=== PATIENT | female | born 1950 | race Caucasian/White ===

== ENCOUNTER 2017-04-07 20:03 | Emergency (ER) | payer BC ==
[~2017-04-07] VITALS: Ht 154.9 cm; Wt 69.0 kg
[~2017-04-07 20:03] MED LIST: CLIN150 PO; DOXY100T PO; HYDR-3533 PO; LEVO50TA4 PO; METHTAB PO
[2017-04-07 20:21] VITALS: BP 199/102; PULSE 102; RESP 18; TEMP 98.3; O2SAT 96
[2017-04-07] MEDS ORDERED: ESTE1TAB5 PO (20:37)
[2017-04-07] MEDS ORDERED: LEVO50TA4 PO (20:37)
[2017-04-07 20:42] VITALS: BP 186/110; PULSE 100; RESP 18; TEMP 98.1; O2SAT 97
[2017-04-07] MEDS ORDERED: HYDROmorphone HCL PF 1 MG/ML VIAL IV PUSH ONE (20:45)
--- NOTE | 2017-04-07 21:19 | RADRPT ---
EXAM DATE/TIME: 04/07/2017 21:05 [facility] COMPARISON: No previous studies available for comparison. INDICATIONS : Right shoulder pain after falling tonight. MEDICAL HISTORY : None. SURGICAL HISTORY : None. ENCOUNTER: Initial ACUITY: 1 day PAIN SCORE: 10/10 LOCATION: Right shoulder. FINDINGS: There is anterior-inferior dislocation of the humerus with respect to the glenoid. There is a probabl e Hill-Sachs to be a humeral head and it is difficult to exclude a fracture of the inferior glenoid r im. CONCLUSION: Shoulder dislocation with possible fracture deformities. Post reduction films are recommended. Benito Chaudhari MD on April 07, 2017 at 21:17 Board Certified Radiologist. This report was verified electronically.
--- NOTE | 2017-04-07 21:27 | PD ---
HPI Chief Complaint: Fall Time Seen by Provider: 20:41 Travel History International Travel<30 days: No Contact w/Intl Traveler<30days: No Traveled to known affect area: No History of Present Illness HPI This 66 year-old woman presents emergent breath or slip and fall. States she landed directly on her left shoulder. She has left shoulder pain and tenderness. She cannot move the left shoulder. She has no head pain or neck pain. Is a little bit of pain in the left paraspinous muscles near the shoulder. She also scraped her left foot. She otherwise is well and healthy. She is not on any blood thinners. No other complaints. History Past Medical History Narrative Medical Hypothyroidism Tetanus Vaccination: < 5 Years Influenza Vaccination: No Social History Alcohol Use: No Tobacco Use: No Allergies-Medications (Allergen,Severity, Reaction): Coded Allergies: Penicillin (Verified Allergy, Mild, RASH, 04/07/17) Macrodantin (Verified Allergy, Unknown, RASH, 04/07/17) Reported Meds & Prescriptions Reported Meds & Active Scripts Active Reported Levothyroxine (Levothyroxine Sodium) 50 Mcg Tab 50 Mcg PO DAILY Esterified Estrogens-Methyltestosterone 1.25-2.5 Mg Tab 2.5 Mg PO DAILY Review of Systems Except as stated in HPI: all other systems reviewed are Neg Physical Exam Narrative GENERAL: Well-appearing 66 year-old woman, uncomfortable but nontoxic. SKIN: Focused skin assessment warm/dry. HEAD: Atraumatic. Normocephalic. NECK: Trachea midline. No JVD. CARDIOVASCULAR: Regular rate and rhythm. No murmur appreciated. RESPIRATORY: No accessory muscle use. Clear to auscultation. Breath sounds equal bilaterally. GASTROINTESTINAL: Abdomen soft, non-tender, nondistended. Hepatic and splenic margins not palpable. MUSCULOSKELETAL: There is deformity to the left shoulder with squaring off at the shoulder, she guards the shoulder slightly abducted and slightly flexed. Radial/ulnar/median nerve function is intact. NEUROLOGICAL: Awake and alert. No obvious cranial nerve deficits. Motor grossly within normal limits. Normal speech. Data Data Last Documented VS Vital Signs Date Time Temp Pulse Resp B/P Pulse Ox O2 Delivery O2 Flow Rate FiO2 04/07/17 20:42 100 18 97 Room Air 04/07/17 20:42 98.1 186/110 Orders Iv Access Insert/Monitor (04/07/17 20:45) Shoulder, Limited(2vws) (04/07/17 ) Hydromorphone Pf Inj (Dilaudid Pf Inj) (04/07/17 20:45) Propofol 200 Mg/20 Ml Inj (Diprivan 200 (04/07/17 21:30) Shoulder, Limited(2vws) (04/07/17 ) [facility] Medical Decision Making Medical Screen Exam Complete: Yes Emergency Medical Condition: Yes Interpretation(s) Left shoulder x-ray: Shoulder dislocation with possible fracture deformities. Postreduction films are recommended. Repeat shoulder x-ray: Successful reduction. Likely Bankart and Hill-Sachs lesions. Differential Diagnosis Shoulder dislocation, fracture, other Narrative Course Medical decision-making 58-year-old woman presents emergent department left shoulder injury. Appears dislocated. Mechanism suspicious for fracture as well. X-ray confirms dislocation with possible fractures. We'll reduce the shoulder, repeat films, or throat follow-up. Procedures Procedure Narrative After the risks and benefits were discussed the following procedure was performed: MODERATE SEDATION: The patient was placed on a registered nurse cardiac telemetry and pulse oximetry. An ambu bag and suction was immediately available at bedside. The patient was monitored by the nurse. Oxygen saturation, heart rate and blood pressure were monitored. Procedural sedation was acheived using 70 mg of propofol.. The patient was observed until awake and alert. Procedural Sedation time in attendance was 15 minutes. Joint reduction: Following informed consent and procedural sedation, simple axial traction and abduction was utilized to reduce the left shoulder. Patient tolerated well. X- ray pending. Diagnosis Primary Impression: Dislocation of left shoulder joint Additional Instructions: Take thousand milligrams of acetaminophen up to 3 times daily as needed for pain. Follow-up with your primary doctor in the next one to 2 days for repeat evaluation. Follow-up with Dr. Diehl in the next one to 2 weeks. Wear sling for one week. Do pendulum shoulder range of motion exercises as discussed several times daily. Return to the emergency department for any new or worsening symptoms. Med/Other Pt SpecificInfo: No Change to Meds Disposition: 01 DISCHARGE HOME Condition: Stable Bernardino Del Real MD Apr 07, 2017 21:27
[2017-04-07] MEDS ORDERED: PROPOFOL 200 MG/20 ML AMP IV ONE (21:30)
[2017-04-07 21:40] VITALS: O2SAT 96
--- NOTE | 2017-04-07 22:03 | RADRPT ---
EXAM DATE/TIME: 04/07/2017 21:56 [facility] COMPARISON: SHOULDER LEFT LTD (2VWS), April 07, 2017, 21:05. INDICATIONS : Post reduction of the left shoulder. MEDICAL HISTORY : None. SURGICAL HISTORY : None. ENCOUNTER: Subsequent ACUITY: 1 day PAIN SCORE: Non-responsive. LOCATION: Left shoulder. FINDINGS: Post reduction films demonstrate normal alignment of the glenohumeral joint. A Hill-Sachs deformity i s suspected the humeral head as well as terior glenoid rim minimally displaced fracture. CONCLUSION: Interval reduction of the shoulder dislocation as above with Hill-Sachs deformity and Bankart deformi ty present. Benito Chaudhari MD on April 07, 2017 at 22:01 Board Certified Radiologist. This report was verified electronically.
[2017-04-07] MEDS ORDERED: HYDR-3533 PO (22:17)
[2017-04-07 22:44] VITALS: BP 172/94; PULSE 84; RESP 18; O2SAT 98
== END 2017-04-07 22:51 | disposition home or self-care (01) ==
LOC: PHED 20:03
DX: S43.005A Unspecified dislocation of left shoulder joint, initial encounter (principal); E03.9 Hypothyroidism, unspecified; W01.0XXA Fall on same level from slipping, tripping and stumbling without subsequent striking against object, initial encounter
CPT/HCPCS: 23650; 73030; 96374; 99285; J1170

== ENCOUNTER 2017-08-22 17:24 | Inpatient (IN) | payer BC ==
[~2017-08-22] VITALS: Ht 154.9 cm; Wt 75.8 kg
[2017-08-22] VITALS (8 sets, daily range): BP systolic 141–210; BP diastolic 83–120; PULSE 69–97; RESP 16–20; TEMP 97.5–98.9; O2SAT 95–98
[~2017-08-22 17:24] MED LIST changes: -CLIN150 PO; -DOXY100T PO; +ESTE1TAB5 PO; -METHTAB PO
[2017-08-22] MEDS ORDERED: LAMO25TA PO (17:53)
[2017-08-22] MEDS ORDERED: SERO50TA PO (17:53)
--- NOTE | 2017-08-22 18:06 | PD ---
HPI Chief Complaint: Chest Pain Time Seen by Provider: 17:44 Travel History International Travel<30 days: No Contact w/Intl Traveler<30days: No Traveled to known affect area: No History of Present Illness HPI 67-year-old female complains of coughing congestion and shortness of breath and chest pain. Patient states that the symptoms started about 2 weeks ago. Patient states that the cough is mild intermittent dry cough. Patient denies any fever chills. Patient states that the chest pain is substernal pressure with radiation to the jaw. Patient states that the chest pain is not associated with exertion. Patient denies any history of CAD. Patient has history hypertension was on medication before but not now. Patient has history hyperlipidemia and not on medication either. Patient states that she quit smoking 15 years ago. Patient has family history of heart disease. Patient states that she took some Zantac [id number] without much relief of the symptoms. On a scale of 1-10 the pain is a 7. PFSH Past Medical History Autoimmune Disease: No Blood Disorders: No Anxiety: Yes Depression: Yes Cancer: No Cardiovascular Problems: No Chemotherapy: No Diabetes: No Diminished Hearing: No Endocrine: No Gastrointestinal Disorders: No GERD: Yes Glaucoma: No Genitourinary: No Hepatitis: No Hiatal Hernia: No Heparin Induced Thrombocytopen: No Hypertension: Yes Immune Disorder: No Implanted Vascular Access Dvce: No Kidney Stones: No Medical other: Yes (HX GERD) Musculoskeletal: No Neurologic: No Psychiatric: Yes Reproductive: No Respiratory: No Immunizations Current: Yes Radiation Therapy: No Renal Failure: No Sickle Cell Disease: No Thyroid Disease: Yes Ulcer: No ?: Not Past Surgical History Abdominal Surgery: Yes (APPY) AICD: No Appendectomy: Yes Arteriovenous Shunt: No Cardiac Surgery: No Cholecystectomy: No Ear Surgery: No Endocrine Surgery: No Eye Surgery: No Genitourinary Surgery: No Gynecologic Surgery: Yes (HYSTERECTOMY, RIGHT OOPHORECTOMY) Hysterectomy: Yes (WITH OOPHERECTOMY) Insulin Pump: No Joint Replacement: No Neurologic Surgery: No Oral Surgery: Yes (T & A) Pacemaker: No Thoracic Surgery: No Tonsillectomy: Yes Other Surgery: No Social History Alcohol Use: No Tobacco Use: No Substance Use: No Allergies-Medications (Allergen,Severity, Reaction): Coded Allergies: penicillin G (Unverified Allergy, Mild, RASH, 08/22/17) nitrofurantoin (Unverified Allergy, Unknown, RASH, 08/22/17) Reported Meds & Prescriptions Reported Meds & Active Scripts Active Reported Lamotrigine 25 Mg Tab Unknown Dose PO BID Seroquel (Quetiapine Fumarate) 50 Mg Tab Unknown Dose PO HS Levothyroxine (Levothyroxine Sodium) 50 Mcg Tab 50 Mcg PO DAILY Esterified Estrogens-Methyltestosterone 1.25-2.5 Mg Tab 2.5 Mg PO DAILY Review of Systems General / Constitutional: No: Fever Eyes: No: Visual changes HENT: No: Headaches Cardiovascular: Positive: Chest Pain or Discomfort Respiratory: No: Shortness of Breath Gastrointestinal: No: Abdominal Pain Genitourinary: No: Dysuria Musculoskeletal: No: Pain Skin: No Rash Neurologic: No: Weakness Psychiatric: No: Depression Endocrine: No: Polydipsia Hematologic/Lymphatic: No: Easy Bruising Physical Exam Narrative GENERAL: Well-nourished, well-developed patient. SKIN: Focused skin assessment warm/dry. HEAD: Normocephalic. EYES: No scleral icterus. No injection or drainage. NECK: Supple, trachea midline. No JVD or lymphadenopathy. CARDIOVASCULAR: Regular rate and rhythm without murmurs, gallops, or rubs. RESPIRATORY: Breath sounds equal bilaterally. No accessory muscle use. GASTROINTESTINAL: Abdomen soft, non-tender, nondistended. MUSCULOSKELETAL: No cyanosis, or edema. BACK: Nontender without obvious deformity. No CVA tenderness. Neurologic exam normal. Data Data Last Documented VS Vital Signs Date Time Temp Pulse Resp B/P (MAP) Pulse Ox O2 Delivery O2 Flow Rate FiO2 08/22/17 18:37 18 97 Room Air 08/22/17 18:36 75 08/22/17 17:30 98.9 Orders Orders Electrocardiogram (08/22/17 17:52) Complete Blood Count With Diff (08/22/17 17:52) Comprehensive Metabolic Panel (08/22/17 17:52) Creatine Kinase (Cpk) (08/22/17 17:52) Troponin I (08/22/17 17:52) Prothrombin Time / Inr (Pt) (08/22/17 17:52) Act Partial Throm Time (Ptt) (08/22/17 17:52) Lipase (08/22/17 17:52) Thyroid Stimulating Hormone (08/22/17 17:52) Chest, Single Ap (08/22/17 17:52) Iv Access Insert/Monitor (08/22/17 17:52) Ecg Monitoring (08/22/17 17:52) Oximetry (08/22/17 17:52) Labetalol Inj (Trandate Inj) (08/22/17 18:15) Pantoprazole (Protonix) (08/22/17 18:15) Al-Mag Hy-Si 40-40-4 Mg/Ml Liq (Mag-Al P (08/22/17 18:15) Aspirin (Aspirin) (08/22/17 18:15) Labs Laboratory Tests Test 08/22/17 18:00 White Blood Count 10.4 TH/MM3 Red Blood Count 5.20 MIL/MM3 Hemoglobin 14.6 GM/DL Hematocrit 44.8 % Mean Corpuscular Volume 86.2 FL Mean Corpuscular Hemoglobin 28.2 PG Mean Corpuscular Hemoglobin Concent 32.7 % Red Cell Distribution Width 12.8 % Platelet Count 403 TH/MM3 Mean Platelet Volume 8.5 FL Neutrophils (%) (Auto) 67.6 % Lymphocytes (%) (Auto) 23.4 % Monocytes (%) (Auto) 6.0 % Eosinophils (%) (Auto) 2.0 % Basophils (%) (Auto) 1.0 % Neutrophils # (Auto) 7.1 TH/MM3 Lymphocytes # (Auto) 2.4 TH/MM3 Monocytes # (Auto) 0.6 TH/MM3 Eosinophils # (Auto) 0.2 TH/MM3 Basophils # (Auto) 0.1 TH/MM3 CBC Comment DIFF FINAL Differential Comment Prothrombin Time 10.3 SEC Prothromb Time International Ratio 0.9 RATIO Activated Partial Thromboplast Time 27.8 SEC Blood Urea Nitrogen 18 MG/DL Creatinine 1.00 MG/DL Random Glucose 92 MG/DL Total Protein 7.8 GM/DL Albumin 3.8 GM/DL Calcium Level 8.7 MG/DL Alkaline Phosphatase 84 U/L Aspartate Amino Transf (AST/SGOT) 19 U/L Alanine Aminotransferase (ALT/SGPT) 27 U/L Total Bilirubin 0.4 MG/DL Sodium Level 138 MEQ/L Potassium Level 4.0 MEQ/L Chloride Level 105 MEQ/L Carbon Dioxide Level 24.1 MEQ/L Anion Gap 9 MEQ/L Estimat Glomerular Filtration Rate 55 ML/MIN Total Creatine Kinase 90 U/L Troponin I 0.19 NG/ML Lipase 55 U/L Thyroid Stimulating Hormone 3rd Gen 2.170 uIU/ML MDM Medical Decision Making Medical Screen Exam Complete: Yes Emergency Medical Condition: Yes Interpretation(s) 1806 p.m. EKG shows sinus rhythm nonspecific ST-T wave change. 1822 PM. Chest x-ray shows no acute process. CBC within normal limit. 1857 PM. Troponin 0.19. Differential Diagnosis Differential diagnosis including URI, bronchitis, pneumonia, angina, ND, PE, pneumothorax, GERD. Narrative Course 67-year-old female with coughing congestion and chest pain and shortness of breath. Patient's blood pressures elevated also. Aspirin 325 mg by mouth given. Labetalol 10 mg IV given. Maalox 30 cc by mouth. Protonix 40 mg by mouth. Nitroglycerin drip started. Heparin bolus and drip started. Patient will be admitted [facility] with cardiology consultation. Diagnosis Primary Impression: NSTEMI (non-ST elevated myocardial infarction) Additional Impression: Uncontrolled hypertension Admitting Information Admitting Physician Requests: Admit Toon Iyer MD Aug 22, 2017 18:06
[2017-08-22 18:08] LABS: AUTOMATED NEUTROPHIL # 7.1 TH/MM3 (1.8-7.7); BASOPHIL # 0.1 TH/MM3 (0-0.2); EOSINOPHIL # 0.2 TH/MM3 (0-0.4); HEMATOCRIT 44.8 % (35.0-46.0); HEMO FLAGS DIFF FINAL; LYMPH % 23.4 % (9.0-44.0); LYMPHOCYTE # 2.4 TH/MM3 (1.0-4.8); MEAN CELL VOLUME 86.2 FL (80.0-100.0); MEAN CORPUSCULAR HEMOGLOBIN 28.2 PG (27.0-34.0); MEAN CORPUSCULAR HGB CONC 32.7 % (32.0-36.0); NEUT % 67.6 % (16.0-70.0); PLATELET COUNT 403 TH/MM3 (150-450); RED CELL DISTRIBUTION WIDTH 12.8 % (11.6-17.2); WHITE BLOOD COUNT 10.4 TH/MM3 (4.0-11.0)
[2017-08-22] MEDS ORDERED: LABETALOL HCL 100 MG/20 ML VIAL IV PUSH ONE (18:15)
[2017-08-22] MEDS ORDERED: ALUMINUM/MAGNESIUM/SIMETH 30 ML CUP PO ONE ×2 (18:15→23:00)
[2017-08-22] MEDS ORDERED: ASPIRIN 325 MG TAB PO ONE (18:15)
[2017-08-22] MEDS ORDERED: PANTOPRAZOLE SOD 40 MG DELAYED RELEASE TAB PO ONE (18:15)
--- NOTE | 2017-08-22 18:18 | RADRPT ---
EXAM DATE/TIME: 08/22/2017 18:09 [facility] COMPARISON: No previous studies available for comparison. INDICATIONS : Chest pain, short of breath MEDICAL HISTORY : None. SURGICAL HISTORY : None. ENCOUNTER: Initial ACUITY: 2 weeks PAIN SCORE: 7/10 LOCATION: Bilateral chest FINDINGS: A single view of the chest demonstrates the lungs to be symmetrically aerated without evidence of mas s, infiltrate or effusion. The cardiomediastinal contours are unremarkable. Osseous structures are intact. CONCLUSION: 1. No acute cardiopulmonary disease. Jed Dolan MD on August 22, 2017 at 18:15 Board Certified Radiologist. This report was verified electronically.
[2017-08-22 18:21] LABS: CHLORIDE 105 MEQ/L (98-107); SODIUM (NA) 138 MEQ/L (136-145)
[2017-08-22 18:25] LABS: ANION GAP 9 MEQ/L (5-15); BICARBONATE 24.1 MEQ/L (21.0-32.0); BLOOD UREA NITROGEN 18 MG/DL (7-18)
[2017-08-22 18:27] LABS: APTT (PATIENT) 27.8 SEC (24.3-30.1); INTERNATIONAL NORMALIZED RATIO 0.9 RATIO; PROTHROMBIN TIME - PATIENT 10.3 SEC (9.8-11.6)
[2017-08-22 18:28] LABS: ALT (GPT) 27 U/L (10-53); AST (GOT) 19 U/L (15-37); GLOMERULAR FILTRATION RATE 55 ML/MIN (>89)
[2017-08-22 18:30] LABS: TOTAL BILIRUBIN ADULT 0.4 MG/DL (0.2-1.0)
[2017-08-22 18:31] LABS: ALKALINE PHOSPHATASE 84 U/L (45-117)
[2017-08-22 18:46] LABS: CREATINE KINASE 90 U/L (26-192)
[2017-08-22] MEDS: SODIUM CHLOR 0.9% 1000 ML INJ 1,000 ML IV SCH (19:08)
[2017-08-22] MEDS ORDERED: MAGNESIUM HYDROXIDE SUSP 30 ML CUP PO PRN (19:15)
[2017-08-22] MEDS ORDERED: ONDANSETRON HCL 4 MG/2 ML VIAL IVP PRN (19:15)
[2017-08-22] MEDS ORDERED: HEPARIN SODIUM - IV 10,000 UNITS/10 ML VIAL IV ONE (19:15)
[2017-08-22] MEDS ORDERED: SENNOSIDES 8.6 MG TAB PO PRN (19:15)
[2017-08-22] MEDS ORDERED: NITROGLYCERIN-D5W 50 MG/250 ML 250 ML IV PRN (19:15)
[2017-08-22] MEDS ORDERED: ACETAMINOPHEN 325 MG TAB PO PRN (19:15)
[2017-08-22] MEDS ORDERED: BISACODYL 10 MG SUPP RECTAL PRN (19:15)
[2017-08-22] MEDS ORDERED: LACTULOSE SYRUP 20 GM/30 ML CUP PO PRN (19:15)
[2017-08-22] MEDS: HEPARIN-D5W 25,000 U/250 ML 250 ML IV PRN (19:45)
[2017-08-22] MEDS: SODIUM CHLORIDE 0.9% FLUSH 10 ML FLUSH IV FLUSH SCH (21:00)
[2017-08-22] MEDS: DOCUSATE SODIUM 50 MG/SENNA 8.6 MG TAB PO SCH (21:00)
[2017-08-22] MEDS: METOPROLOL TARTRATE 25 MG TAB PO SCH (21:29)
[2017-08-22] MEDS: PRAVASTATIN SOD 40 MG TAB PO SCH (21:29)
[2017-08-22] MEDS: MORPHINE SULFATE 4 MG/ML INJ IV PUSH PRN (21:29)
[2017-08-22] MEDS: FLUTICASONE PROPIONATE 50 MCG/ACT 16 GM NASAL SPRAY NASAL SCH (22:39)
--- NOTE | 2017-08-22 22:52 | HHI.HP ---
[facility] Nat Mckay M.D. Admission Diagnosis NSTEMI Diagnoses: (1) Hypertensive urgency (2) NSTEMI (non-ST elevated myocardial infarction) Chief Complaint: cough, congestion, shortness of breath, and chest pain Travel History International Travel<30 Days: No Contact w/Intl Traveler <30 Da: No Traveled to Known Affected Are: No History of Present Illness Ms. Freitas is a very anxious 67 year-old female with a history of bipolar disorder, GERD, hypertension, hyperlipidemia, and hypothyroidism who presented to the emergency department on 08/22/2017 in [place] for evaluation of congestion, cough, shortness of breath, and chest pain. Evaluation showed elevated troponin I of 0.19. The patient is seen in her room and the [facility]. She is manic in her behavior. She speaks very rapidly and it is difficult to keep her on subject. She reports that her symptoms began about 2 weeks ago with a mild cough. Accompanying the cough has been some shortness of breath that is worse with exertion and substernal chest pain that she associates with gastroesophageal reflux disease. She reports that it's worse when she bends forward and is accompanied by gastric contents refluxing into her esophagus quite painfully. However, she has also had nausea with these symptoms and right neck and shoulder pain. Her symptoms are worsened with eating. Her symptoms became exacerbated again during my visit and, according to her, this was because she had just finished dinner and felt like indigestion - heparin and nitroglycerin drips were infusing at the time. Her symptoms are accompanied by palpitations, shortness of breath but not associated with diaphoresis. She reports recent tactile fever and chills, shortness of breath, wheezing, chest pressure, neck and shoulder pain, heartburn , indigestion, weight gain of 20 pounds in the past year which she attributes to Seroquel started by her psychiatrist, Dr. Miguel Angel Ortiz. Her CBC is normal and her chest x-ray showed no acute disease. The only lab result that was significantly abnormal was the troponin one elevation of 0.19. She is clearly anxious and suffering from anxiety in her daily life. She has significant psychiatric impairment and her Lamictal dose was increased two weeks ago. Review of Systems Except as stated in HPI: all other systems reviewed are Neg Past Family Social History Past Medical History Bipolar disorder Questionable history of scleroderma GERD Hypertension Hyperlipidemia Hypothyroidism Left shoulder dislocation following fall at home 04/07/2017 . Past Surgical History Hysterectomy Right nephrectomy and appendectomy at the age of 13 Tonsillectomy and adenoidectomy 3 back surgeries, lower back Left breast lumpectomy in the 90s was benign Left distal radius fracture with repair by Dr. Dong 11/11/12 . Reported Medications Reported Meds & Active Scripts Active Reported Lamotrigine 100 Mg Tab 50 Mg PO BID Quetiapine (Quetiapine Fumarate) 50 Mg Tab 50 Mg PO HS Levothyroxine (Levothyroxine Sodium) 50 Mcg Tab 50 Mcg PO DAILY Esterified Estrogens-Methyltestosterone 1.25-2.5 Mg Tab 2.5 Mg PO DAILY . Allergies: Coded Allergies: penicillin G (Unverified Allergy, Mild, RASH, 08/22/17) nitrofurantoin (Unverified Allergy, Unknown, RASH, 08/22/17) Active Ordered Medications Current Medications Labetalol HCl (Trandate Inj) 10 mg ONCE ONCE IV PUSH Last administered on 08/22 18:15; Start 08/22/17 at 18:15; Stop 08/22/17 at 18:16; Status DC Aspirin (Aspirin) 325 mg ONCE ONCE PO Last administered on 08/22/17 18:15; Start 08/22/17 at 18:15; Stop 08/22/17 at 18:16; Status DC Pantoprazole Sodium (Protonix) 40 mg ONCE ONCE PO Last administered on 18:15; Start 08/22/17 at 18:15; Stop 08/22/17 at 18:16; Status DC Al Hydrox/Mg Hydrox/Simethicone (Mag-Al Plus Susp Liq) 30 ml ONCE ONCE PO Last administered on 08/22/17 18:15; Start 08/22/17 at 18:15; Stop 08/22/17 at 18:16; Status DC Nitroglycerin/ Dextrose 250 ml @ 1.5 mls/hr TITRATE PRN IV Chest pain relief Last administered on 08/22/17 19:42; Start 08/22/17 at 19:15 Heparin Sodium (Porcine) (Heparin Inj) 4,000 units ONCE ONCE IV Last administered on 08/22/17 19:45; Start 08/22/17 at 19:15; Stop 08/22/17 at 19:16 ; Status DC Heparin Sodium/ Dextrose 250 ml @ 9.012 mls/ hr TITRATE PRN IV Coagulation Management Last administered on 08/22/17 19:45; Start 08/22/17 at 19:15 Metoprolol Tartrate (Lopressor) 25 mg Q12HR PO Last administered on 08/22/17 21:29; Start 08/22/17 at 21:00 Aspirin (Ecotrin Ec) 81 mg DAILY PO ; Start 08/23/17 at 09:00 Pravastatin Sodium (Pravachol) 40 mg HS PO Last administered on 08/22/17 21:29 ; Start 08/22/17 at 21:00 Sodium Chloride 1,000 ml @ 100 mls/hr Q10H IV ; Start 08/22/17 at 19:08 Sodium Chloride (NS Flush) 2 ml UNSCH PRN IV FLUSH FLUSH AFTER USING IV ACCESS ; Start 08/22/17 at 19:15 Sodium Chloride (NS Flush) 2 ml BID IV FLUSH ; Start 08/22/17 at 21:00 Ondansetron HCl (Zofran Inj) 4 mg Q6H PRN IVP NAUSEA OR VOMITING; Start at 19:15 Acetaminophen (Tylenol) 650 mg Q6H PRN PO FEVER/PAIN SCALE 1 TO 2; Start at 19:15 Acetaminophen/ Hydrocodone Bitart ([place] 5-325 Mg) 1 tab Q4H PRN PO PAIN SCALE 3 TO 5; Start 08/22/17 at 19:15 Morphine Sulfate (Morphine Inj) 2 mg Q3H PRN IV PUSH Pain 6-10 if not tolerating po Last administered on 08/23/17 01:00; Start 08/22/17 at 19:15 Senna/Docusate Sodium (Love-Colace) 1 tab BID PO ; Start 08/22/17 at 21:00 Magnesium Hydroxide (Milk Of Magnesia Liq) 30 ml Q12H PRN PO Mild constipation ; Start 08/22/17 at 19:15 Sennosides (Senokot) 17.2 mg Q12H PRN PO Moderate constipation; Start 08/22/17 at 19:15 Bisacodyl (Dulcolax Supp) 10 mg DAILY PRN RECTAL SEVERE CONSITIPATION; Start 08/22/17 at 19:15 Lactulose (Lactulose Liq) 30 ml DAILY PRN PO SEVERE CONSITIPATION; Start at 19:15 Fluticasone Propionate (Flonase Ibrahima Spr) 1 spray BID NASAL Last administered on 08/22/17 22:39; Start 08/22/17 at 22:00 Levothyroxine Sodium (Synthroid) 50 mcg DAILY@0600 PO ; Start 08/23/17 at 09:00 Al Hydrox/Mg Hydrox/Simethicone (Mag-Al Plus Susp Liq) 30 ml ONCE ONCE PO Last administered on 08/22/17 23:26; Start 08/22/17 at 23:00; Stop 08/22/17 at 23:01; Status DC Famotidine (Pepcid) 20 mg BID PO Last administered on 08/22/17 23:26; Start 08/22/17 at 23:00 Alprazolam (Xanax) 0.25 mg Q6H PRN PO anxiety Last administered on 08/22/17 23 :26; Start 08/22/17 at 23:15 Pneumococcal Polyvalent Vaccine (Pneumovax-23 Inj) 25 mcg ONCE ONCE IM ; Start 08/24/17 at 10:00; Stop 08/24/17 at 10:01 Influenza Virus Vaccine (Flu (Quadrivalent) Vaccine Inj) 0.5 ml ONCE ONCE IM ; Start 08/24/17 at 10:00; Stop 08/24/17 at 10:01 . Family History Father at 81 from CVA Mother at age 95 from congestive heart failure Denies any other family history of heart disease . Social History Tobacco: Smoked on and off for 30 years, quit 15 years ago. Alcohol: Denies Illicit Drugs: Denies . . Physical Exam Vital Signs Vital Signs Date Time Temp Pulse Resp B/P (MAP) Pulse Ox O2 Delivery O2 Flow Rate FiO2 08/22/17 20:39 08/22/17 20:23 83 191/112 (138) 95 Room Air 08/22/17 20:06 81 16 210/120 (150) 97 Room Air 08/22/17 19:42 81 212/120 08/22/17 19:00 88 16 179/89 (119) 98 Room Air 08/22/17 18:37 18 97 Room Air 08/22/17 18:36 75 18 168/85 (112) 97 Room Air 08/22/17 17:30 98.9 97 20 193/117 (142) 98 210/107 (141) Physical Exam GENERAL: This is a clearly anxious/manic female patient. SKIN: No rashes, ecchymoses or lesions. Cool and dry. HEAD: Atraumatic. Normocephalic. EYES: No scleral icterus. No injection or drainage. ENT: Nose without bleeding, purulent drainage. NECK: Trachea midline. No JVD. CARDIOVASCULAR: Regular rate and rhythm without murmurs, gallops, or rubs. RESPIRATORY: Clear to auscultation. Breath sounds equal bilaterally. No wheezes , rales, or rhonchi. GASTROINTESTINAL: Normally active bowel sounds. Abdomen large, soft, non-tender , nondistended. No guarding. MUSCULOSKELETAL: Extremities without clubbing, cyanosis, or edema. No calf tenderness. NEUROLOGICAL: Awake and alert. Motor and sensory grossly within normal limits. Rapidly delivered speech with difficulty concentrating noted. Laboratory Laboratory Tests Test 08/22/17 18:00 White Blood Count 10.4 Red Blood Count 5.20 Hemoglobin 14.6 Hematocrit 44.8 Mean Corpuscular Volume 86.2 Mean Corpuscular Hemoglobin 28.2 Mean Corpuscular Hemoglobin Concent 32.7 Red Cell Distribution Width 12.8 Platelet Count 403 Mean Platelet Volume 8.5 Neutrophils (%) (Auto) 67.6 Lymphocytes (%) (Auto) 23.4 Monocytes (%) (Auto) 6.0 Eosinophils (%) (Auto) 2.0 Basophils (%) (Auto) 1.0 Neutrophils # (Auto) 7.1 Lymphocytes # (Auto) 2.4 Monocytes # (Auto) 0.6 Eosinophils # (Auto) 0.2 Basophils # (Auto) 0.1 CBC Comment DIFF FINAL Differential Comment Prothrombin Time 10.3 Prothromb Time International Ratio 0.9 Activated Partial Thromboplast Time 27.8 Blood Urea Nitrogen 18 Creatinine 1.00 Random Glucose 92 Total Protein 7.8 Albumin 3.8 Calcium Level 8.7 Alkaline Phosphatase 84 Aspartate Amino Transf (AST/SGOT) 19 Alanine Aminotransferase (ALT/SGPT) 27 Total Bilirubin 0.4 Sodium Level 138 Potassium Level 4.0 Chloride Level 105 Carbon Dioxide Level 24.1 Anion Gap 9 Estimat Glomerular Filtration Rate 55 Total Creatine Kinase 90 Troponin I 0.19 Lipase 55 Thyroid Stimulating Hormone 3rd Gen 2.170 Result Diagram: 08/22/17 1800 08/22/17 1800 Imaging Last Impressions Chest X-Ray 08/22/17 1752 Signed Impressions: Service Date/Time: Tuesday, August 22, 2017 18:09 - CONCLUSION: 1. No acute cardiopulmonary disease. Jed Dolan MD . Caprini VTE Risk Assessment Caprini VTE Risk Assessment: Mod/High Risk (score >= 2) Caprini Risk Assessment Model Point Value = 1 Point Value = 2 Point Value = 3 Point Value = 5 Age 41-60 Minor surgery BMI > 25 kg/m2 Swollen legs Varicose veins or History of unexplained or recurrent spontaneous Oral contraceptives or hormone replacement Sepsis (< 1 month) Serious lung disease, including pneumonia (< 1 month) Abnormal pulmonary function Acute myocardial infarction Congestive heart failure (< 1 month) History of inflammatory bowel disease Medical patient at bed rest Age 61-74 Arthroscopic surgery Major open surgery (> 45 min) Laparoscopic surgery (> 45 min) Malignancy Confined to bed (> 72 hours) Immobilizing plaster cast Central venous access Age >= 75 History of VTE Family history of VTE Factor V Leiden Prothrombin [id number] Lupus anticoagulant Anticardiolipin antibodies Elevated serum homocysteine Heparin-induced thrombocytopenia Other congenital or acquired thrombophilia Stroke (< 1 month) Elective arthroplasty Hip, pelvis, or leg fracture Acute spinal cord injury (< 1 month) Prophylaxis Regimen Total Risk Factor Score Risk Level Prophylaxis Regimen 0-1 Low Early ambulation 2 Moderate Order ONE of the following: *Sequential Compression Device (SCD) *Heparin 5000 units SQ BID 3-4 Higher Order ONE of the following medications: *Heparin 5000 units SQ TID *Enoxaparin/Lovenox 40 mg SQ daily (WT < 150 kg, CrCl > 30 mL/min) *Enoxaparin/Lovenox 30 mg SQ daily (WT < 150 kg, CrCl > 10-29 mL/min) *Enoxaparin/Lovenox 30 mg SQ BID (WT < 150 kg, CrCl > 30 mL/min) AND/OR *Sequential Compression Device (SCD) 5 or more Highest Order ONE of the following medications: *Heparin 5000 units SQ TID (Preferred with Epidurals) *Enoxaparin/Lovenox 40 mg SQ daily (WT < 150 kg, CrCl > 30 mL/min) *Enoxaparin/Lovenox 30 mg SQ daily (WT < 150 kg, CrCl > 10-29 mL/min) *Enoxaparin/Lovenox 30 mg SQ BID (WT < 150 kg, CrCl > 30 mL/min) AND *Sequential Compression Device (SCD) Assessment and Plan Problem List: (1) NSTEMI (non-ST elevated myocardial infarction) ICD Code: I21.4 - Non-ST elevation (NSTEMI) myocardial infarction Status: Acute (2) Hypertensive urgency ICD Code: I16.0 - Hypertensive urgency (3) GERD (gastroesophageal reflux disease) ICD Code: K21.9 - Gastro-esophageal reflux disease without esophagitis Status: Acute (4) Bipolar disorder ICD Code: F31.9 - Bipolar disorder, unspecified Status: Chronic (5) Hypothyroidism ICD Code: E03.9 - Hypothyroidism, unspecified Status: Chronic Assessment and Plan Ms. Freitas is a very anxious 67 year-old female with a history of bipolar disorder, GERD, hypertension, hyperlipidemia, and hypothyroidism who presented to the emergency department on 08/22/2017 in [place] for evaluation of congestion, cough, shortness of breath, and chest pain. Evaluation showed elevated troponin I of 0.19. She has been transferred to the main hospital for further medical management with cardiology consultation. NSTEMI - Initial troponin I - 0.19 - Heparin drip - Nitroglycerin drip - Cardiology consulted - appreciate assistance - Morphine 2 mg IV every 3 hours as needed for severe pain - Continuous cardiac telemetry to monitor for arrhythmia - Monitor ANA every shift for fluid overload - Monitor vital signs every 4 hours - Hold home supplemental hormones - NPO except medications Hypertensive urgency - Blood pressure as high as 210/120 shortly after arrival - Treated with labetalol 10 mg IV, metoprolol, and nitroglycerin drip - Lead pressure has improved to 141/83 - continue to monitor blood pressure trends and adjust treatment as indicated GERD - Mylanta 30 ccs p.o. ordered during my visit - Pepcid 20 mg BID p.o. - may benefit from GI evaluation if symptoms persist Bi-Polar Disorder - continue home Seroquel and Lamictal - Xanax 0.25 mg q6h PRN anxiety for patient's acute anxiety/juana Hypothyroidism - resume home medications DVT prophylaxis - on heparin drip for now Discussed Condition With Dr. Cano, patient, and RN . Physician Certification 2 Midnight Certification Type: Admission for Inpatient Services Order for Inpatient Services The services are ordered in accordance with Medicare regulations or non- Medicare payer requirements, as applicable. In the case of services not specified as inpatient-only, they are appropriately provided as inpatient services in accordance with the 2-midnight benchmark. Estimated LOS (days): 3 days is the estimated time the patient will need to remain in the hospital, assuming treatment plan goals are met and no additional complications. Post-Hospital Plan: Home Marcela Hobbs Aug 22, 2017 22:52
[2017-08-22] MEDS: ALPRAZolam 0.25 MG TAB PO PRN (23:26)
[2017-08-22] MEDS: FAMOTIDINE 20 MG TAB PO SCH (23:26)
[2017-08-23] VITALS (25 sets, daily range): BP systolic 103–151; BP diastolic 53–81; PULSE 62–90; RESP 18–20; TEMP 97.9–99; O2SAT 94–97
[2017-08-23] MEDS: MORPHINE SULFATE 4 MG/ML INJ IV PUSH PRN ×4 (01:00→22:06)
[2017-08-23] MEDS ORDERED: QUET5TAB PO (01:54)
[2017-08-23] MEDS ORDERED: LAMO100T PO (01:54)
[2017-08-23] MEDS ORDERED: QUEtiapine FUMARATE 25 MG TAB PO ONE (02:15)
[2017-08-23] MEDS: lamoTRIgine 25 MG TAB PO SCH ×3 (02:47→22:18)
[2017-08-23 02:50] LABS: APTT (PATIENT) 37.3 SEC (24.3-30.1)
[2017-08-23 03:13] LABS: AUTOMATED NEUTROPHIL # 7.7 TH/MM3 (1.8-7.7); BASOPHIL # 0.1 TH/MM3 (0-0.2); BASOPHIL % 0.8 % (0.0-2.0); EOSINOPHIL # 0.2 TH/MM3 (0-0.4); EOSINOPHIL % 1.6 % (0.0-4.0); HEMATOCRIT 40.5 % (35.0-46.0); HEMO FLAGS DIFF FINAL; LYMPH % 33.9 % (9.0-44.0); LYMPHOCYTE # 4.6 TH/MM3 (1.0-4.8); MEAN CELL VOLUME 88.3 FL (80.0-100.0); MEAN CORPUSCULAR HEMOGLOBIN 29.2 PG (27.0-34.0); MEAN CORPUSCULAR HGB CONC 33.1 % (32.0-36.0); MONO % 6.5 % (0.0-8.0); NEUT % 57.2 % (16.0-70.0); PLATELET COUNT 324 TH/MM3 (150-450); RED BLOOD COUNT 4.58 MIL/MM3 (4.00-5.30); RED CELL DISTRIBUTION WIDTH 13.6 % (11.6-17.2); WHITE BLOOD COUNT 13.5 TH/MM3 (4.0-11.0)
[2017-08-23] MEDS: ALPRAZolam 0.25 MG TAB PO PRN ×3 (06:27→20:38)
[2017-08-23] MEDS: DOCUSATE SODIUM 50 MG/SENNA 8.6 MG TAB PO SCH ×2 (09:00→21:00)
[2017-08-23] MEDS: LEVOTHYROXINE SODIUM 50 MCG TAB PO SCH (09:00)
[2017-08-23] MEDS: ASPIRIN EC 81 MG TABEC PO SCH (09:00)
[2017-08-23] MEDS: SODIUM CHLORIDE 0.9% FLUSH 10 ML FLUSH IV FLUSH SCH ×2 (09:00→22:15)
[2017-08-23] MEDS: METOPROLOL TARTRATE 25 MG TAB PO SCH ×2 (09:00→22:12)
[2017-08-23] MEDS: FAMOTIDINE 20 MG TAB PO SCH ×2 (09:00→22:13)
[2017-08-23] MEDS: FLUTICASONE PROPIONATE 50 MCG/ACT 16 GM NASAL SPRAY NASAL SCH ×2 (09:00→21:00)
[2017-08-23 10:17] LABS: ANION GAP 8 MEQ/L (5-15); BICARBONATE 24.7 MEQ/L (21.0-32.0); BLOOD UREA NITROGEN 22 MG/DL (7-18); CHLORIDE 101 MEQ/L (98-107); GLOMERULAR FILTRATION RATE 40 ML/MIN (>89); POTASSIUM 4.3 MEQ/L (3.5-5.1); SODIUM (NA) 134 MEQ/L (136-145)
[2017-08-23 10:18] LABS: ALT (GPT) 20 U/L (10-53); AST (GOT) 16 U/L (15-37)
[2017-08-23 10:22] LABS: ALKALINE PHOSPHATASE 80 U/L (45-117); TOTAL BILIRUBIN ADULT 0.3 MG/DL (0.2-1.0)
[2017-08-23] MEDS ORDERED: ATORVASTATIN 20 MG TAB PO SCH (11:00)
[2017-08-23 11:31] LABS: HDL CHOLESTEROL 35.3 MG/DL (40.0-60.0)
[2017-08-23 11:58] LABS: APTT (PATIENT) 40.7 SEC (24.3-30.1)
--- NOTE | 2017-08-23 12:27 | HHI.PR ---
Subjective Remarks Patient complains of consistent dull mild retrosternal chest pressure which is worse with cough. Persistent cough now producing small amount of sputum. She feels the symptoms started with probable respiratory infection approximately a week ago. Patient also complains of significant anxiety and requests Xanax. She states she has gained a lot of weight on the Seroquel. Patient quit smoking 30 years ago and stated she only smoked lightly at that time. Patient states that she was diagnosed with hypertension by her primary care physician several years ago but that she stopped taking the blood pressure medication because it made her feel weird. Objective Vitals Vital Signs Date Time Temp Pulse Resp B/P (MAP) Pulse Ox O2 Delivery O2 Flow Rate FiO2 08/23/17 07:45 97.9 76 20 103/53 (70) 97 08/23/17 07:45 76 08/23/17 06:27 113/75 08/23/17 05:00 62 08/23/17 04:08 71 111/66 08/23/17 04:00 72 08/23/17 03:00 98.6 72 18 111/66 (81) 97 08/23/17 03:00 67 08/23/17 02:50 85 107/74 08/23/17 02:00 72 08/23/17 01:00 70 08/23/17 00:00 70 08/22/17 23:00 97.7 69 18 141/83 (102) 96 08/22/17 23:00 77 08/22/17 21:20 97.5 89 18 158/106 (123) 95 08/22/17 21:10 85 208/122 08/22/17 20:39 08/22/17 20:23 83 191/112 (138) 95 Room Air 08/22/17 20:06 81 16 210/120 (150) 97 Room Air 08/22/17 19:42 81 212/120 08/22/17 19:00 88 16 179/89 (119) 98 Room Air 08/22/17 18:37 18 97 Room Air 08/22/17 18:36 75 18 168/85 (112) 97 Room Air 08/22/17 17:30 98.9 97 20 193/117 (142) 98 210/107 (141) I/O 08/22/17 08/22/17 08/22/17 08/23/1717 12/3/17 06:59 14:59 22:59 06:59 14:59 22:59 Intake Total 480 ml Output Total 350 ml Balance 130 ml Intake Oral 480 ml Output Urine Total 350 ml Result Diagram: 08/23/17 0220 08/23/17 0857 Objective Remarks GENERAL: Well-nourished, well-developed pleasant female patient. SKIN: Warm and dry. HEAD: Normocephalic. EYES: No scleral icterus. No injection or drainage. NECK: Supple, trachea midline. No JVD or lymphadenopathy. CARDIOVASCULAR: Regular rate and rhythm without murmurs, gallops, or rubs. RESPIRATORY: Breath sounds equal bilaterally. Clear to auscultation without wheezing. No accessory muscle use. GASTROINTESTINAL: Abdomen soft, non-tender, nondistended. EXTREMITIES: No cyanosis, or edema. NEUROLOGICAL: Awake, alert, and oriented x 3. Non-focal. Psychiatric: Mildly pressured speech, no hallucinations. Good eye contact. Mildly anxious. A/P Problem List: (1) NSTEMI (non-ST elevated myocardial infarction) ICD Code: I21.4 - Non-ST elevation (NSTEMI) myocardial infarction Status: Acute (2) Hypertensive urgency ICD Code: I16.0 - Hypertensive urgency (3) GERD (gastroesophageal reflux disease) ICD Code: K21.9 - Gastro-esophageal reflux disease without esophagitis Status: Acute (4) Bipolar disorder ICD Code: F31.9 - Bipolar disorder, unspecified Status: Chronic (5) Hypothyroidism ICD Code: E03.9 - Hypothyroidism, unspecified Status: Chronic Assessment and Plan Ms. Freitas is a very anxious 67 year-old female with a history of bipolar disorder, GERD, hypertension, hyperlipidemia, and hypothyroidism who presented to the emergency department on 08/22/2017 in [place] for evaluation of congestion, cough, shortness of breath, and chest pain. Evaluation showed elevated troponin I of 0.19. NSTEMI, chest pain, cough x 1 week - risk factors include tobacco use, HTN, sedentary lifestyle - Initial troponin 0.19 - 0.24 - On Heparin drip and Nitroglycerin drip - Cardiology consulted - followed by Dr. Bass as outpatient appreciate assistance - Morphine 2 mg IV every 3 hours as needed for severe pain - Continuous cardiac telemetry to monitor for arrhythmia - Aspirin, statin (LDL 112), start metoprolol. Hypertensive urgency - resolved, now normotensive. + hx HTN but stopped taking medications. - Blood pressure as high as 210/120 shortly after arrival - Treated with labetalol 10 mg IV, metoprolol, and nitroglycerin drip - continue to monitor blood pressure trends and adjust treatment as indicated Dyspnea -Stable on RA -Will check spirometry GERD - Mylanta 30 ccs p.o. ordered during my visit - Pepcid 20 mg BID p.o. Bi-Polar Disorder - continue home Seroquel and Lamictal - Xanax 0.25 mg q6h PRN anxiety for patient's acute anxiety/juana Hypothyroidism - resume home medications DVT prophylaxis - on heparin drip for now Anila Chinchilla MD Aug 23, 2017 12:27
[2017-08-23] MEDS: SODIUM CHLOR 0.9% 1000 ML INJ 1,000 ML IV SCH ×2 (16:00→22:18)
--- NOTE | 2017-08-23 16:17 | MB ---
cc: ASH GONZALEZ M.D., BARTON G. DO DATE OF CONSULTATION: 08/23/2017. IMPRESSION: 1. Chest pressure, enzymatic evidence to suggest subendocardial ischemia / NSTEMI and no EKG changes are noted. 2. Uncontrolled hypertension. 3. Bipolar disorder. 4. Anxiety disorder. 5. History of esophageal reflux. 6. History of dyslipidemia. 7. History of hypothyroidism on replacement therapy. RECOMMENDATIONS: 1. Control the patient's blood pressure. 2. Will start antiplatelet therapy in the form of aspirin. 3. The patient will need at least functional testing and may ultimately require diagnostic cardiac catheterization. CLINICAL DATA: Mrs. Freitas is a 67-year-old female admitted to the hospital with complaints of cough, shortness of breath and chest discomfort. Initial troponin was elevated at 0.19. She had no EKG changes. She has no previous history of myocardial infarction, congestive heart failure or cardiac arrhythmia. She does have a history of hypertension. She unilaterally stopped her blood pressure medications as she said they made her feel strange. She has a history of bipolar disorder, and apparently her Lamictal had been increased recently. She has seen Dr. Gonzalez. It is unclear if she has had a stress test in the past. She has no history of myocardial infarction, congestive heart failure, cardiac arrhythmias or pericardial heart disease. There is no history of seizure or stroke. There is no history of asthma, bronchitis or emphysema. She was a cigarette smoker but quit either fifteen or thirty years ago, she tells several different time lines. She has a history of esophageal reflux disease. No history of GI bleeding. No history of liver disease. No history of gallbladder disease. PAST SURGICAL HISTORY: Her past surgical history includes: 1. Right nephrectomy and appendectomy. 2. Hysterectomy. 3. She has had several back surgeries. 4. Left breast lumpectomy for benign tumor. 5. Orthopedic surgery on her left wrist. MEDICATIONS: Her medicines at the time of admission included: 1. Lamotrigine 50 milligrams twice a day. 2. She is on 50 milligrams at bedtime. 3. Levothyroxine 15 micrograms daily. 4. Conjugated estrogens with methyl-testosterone. ALLERGIES: SHE IS ALLERGIC TO: 1. PENICILLIN. 2. NITROFURANTOIN. REVIEW OF SYSTEMS: She has had no recent syncope, transient neurological deficits, amaurosis fugax, claudication. When she first came into the emergency room, her blood pressure was as high as 210/120. PHYSICAL EXAMINATION: GENERAL: Physical exam at this time demonstrates an alert oriented female in no apparent distress. VITAL SIGNS: She is in sinus rhythm, heart rate 70, blood pressure 110/60. HEAD, EYES, EARS, NOSE, THROAT: Anicteric sclerae. Neck: Jugular venous pressures are normal. There is no definite thyromegaly noted. There are no carotid bruits. LUNGS: She has clear lung bianchi. CARDIAC: Cardiac exam reveals regular rate and rhythm. She does have a fourth heart sound. There is no S3. /6 systolic ejection murmur noted. ABDOMEN: Abdomen soft and nontender. EXTREMITIES: Free of cyanosis, clubbing, edema. EKGS: A 12-lead electrocardiogram is as noted above: normal sinus rhythm, normal ventricular axis, nonspecific interventricular conduction delay, voltage criteria for left ventricular hypertrophy noted. LABORATORY STUDIES: White cell count on admission was 10,400, hematocrit 45%, platelet count 403,000. Lytes 138, 4.0, 105, 24 with a BUN of 18, creatinine of 1. Troponins ranging between 0.19 and 0.25. LDL cholesterol 112. Total cholesterol 173. HDL cholesterol was 35. Triglycerides 127. IMAGING STUDIES: Chest x-ray unremarkable. DISCUSSION: This is a 67-year-old female with bipolar and anxiety disorder admitted to the hospital with uncontrolled hypertension and enzymatic evidence of a [id number]-segment elevation myocardial infarction. RECOMMENDATIONS: Recommendations are as noted above. She has been started on metoprolol and pravastatin in addition to aspirin. The patient will need a functional testing and/or cardiac catheterization. DO CHITO Jensen/SILVERIO /3:49 PM /4:01 PM
[2017-08-23] MEDS: SODIUM CHLORIDE 0.9% FLUSH 10 ML FLUSH IV FLUSH PRN (17:34)
[2017-08-23 19:18] LABS: APTT (PATIENT) 26.3 SEC (24.3-30.1)
[2017-08-23] MEDS: HEPARIN-D5W 25,000 U/250 ML 250 ML IV PRN (20:41)
[2017-08-23] MEDS: PRAVASTATIN SOD 40 MG TAB PO SCH (22:13)
[2017-08-23] MEDS: QUEtiapine FUMARATE 25 MG TAB PO SCH (22:14)
[2017-08-23] MEDS: ACETAMINOPHEN/HYDROcodone 325 MG/5 MG TAB PO PRN (22:22)
--- NOTE | 2017-08-23 22:39 | EKG ---
Date Performed: 08/22/2017 Time Performed: 17:35:02 PTAGE: 67 years EKG: Sinus rhythm NONSPECIFIC T-WAVE ABNORMALITY BORDERLINE ECG INTERPRETATION BASED ON A DEFAULT AGE OF 40 YEARS PREVIOUS TRACING : 11/11/2012 07.37 Compared to prior tracing no significant change DOCTOR: Renny Germain Interpretating Date/Time 08/23/2017 22:38:20
[2017-08-24] VITALS (28 sets, daily range): BP systolic 106–144; BP diastolic 53–83; PULSE 56–76; RESP 16–20; TEMP 97.9–99.1; O2SAT 93–96
[2017-08-24] MEDS: LEVOTHYROXINE SODIUM 50 MCG TAB PO SCH (05:39)
[2017-08-24] MEDS: MORPHINE SULFATE 4 MG/ML INJ IV PUSH PRN ×3 (05:40→17:46)
[2017-08-24] MEDS: ACETAMINOPHEN/HYDROcodone 325 MG/5 MG TAB PO PRN ×3 (05:44→20:21)
[2017-08-24 06:36] LABS: APTT (PATIENT) 52.9 SEC (24.3-30.1)
[2017-08-24 06:50] LABS: BICARBONATE 23.2 MEQ/L (21.0-32.0); POTASSIUM 4.3 MEQ/L (3.5-5.1)
[2017-08-24] MEDS ORDERED: SODIUM CHLOR 0.9% 1000 ML INJ 1,000 ML IV SCH (07:52)
[2017-08-24] MEDS ORDERED: diphenhydrAMINE HCL 50 MG CAP PO SCH (08:00)
[2017-08-24] MEDS ORDERED: MIDAZOLAM HCL 2 MG/2 ML VIAL IV PUSH SCH (08:00)
[2017-08-24] MEDS ORDERED: ASPIRIN 325 MG TAB PO SCH (08:00)
--- NOTE | 2017-08-24 08:07 | PD.CARD.PN ---
Subjective Subjective Remarks I last saw this patinet in 2013. She had c/o CP at that time. She chose to come back PRN only. ETT in 2013 was normal. She was non-compliant with my medication instructions at that time and continues to be according to the current records. Today she continues to describe intermittent CP. Some is clearly pleuritic in nature but some is also more typical. Very anxious. BP is improved. Objective Medications Current Medications Medications (Trade) Dose Ordered Sig/Veronica Route Start Time Stop Time Status Last Admin Heparin Sodium/ Dextrose 250 ml @ 9.012 mls/ hr TITRATE PRN IV 08/22/17 19:15 08/23/17 20:41 (Ecotrin Ec) 81 mg DAILY PO 08/23/17 09:00 08/23/17 09:00 (Pravachol) 40 mg HS PO 08/22/17 21:00 08/23/17 22:13 Sodium Chloride 1,000 ml @ 75 mls/hr [id number] IV 08/22/17 19:08 08/23/17 22:18 (NS Flush) 2 ml UNSCH PRN IV FLUSH 08/22/17 19:15 08/23/17 17:34 (NS Flush) 2 ml BID IV FLUSH 08/22/17 21:00 08/23/17 22:15 (Zofran Inj) 4 mg Q6H PRN IVP 08/22/17 19:15 (Tylenol) 650 mg Q6H PRN PO 08/22/17 19:15 (Hanalei 5-325 Mg) 1 tab Q4H PRN PO 08/22/17 19:15 08/24/17 05:44 (Morphine Inj) 2 mg Q3H PRN IV PUSH 08/22/17 19:15 08/24/17 05:40 (Love-Colace) 1 tab BID PO 08/22/17 21:00 08/23/17 09:00 (Milk Of Magnesia Liq) 30 ml Q12H PRN PO 08/22/17 19:15 (Senokot) 17.2 mg Q12H PRN PO 08/22/17 19:15 (Dulcolax Supp) 10 mg DAILY PRN RECTAL 08/22/17 19:15 (Lactulose Liq) 30 ml DAILY PRN PO 08/22/17 19:15 (Flonase Ibrahima Spr) 1 spray BID NASAL 08/22/17 22:00 08/23/17 09:00 (Synthroid) 50 mcg DAILY@0600 PO 08/23/17 09:00 08/24/17 05:39 (Xanax) 0.25 mg Q6H PRN PO 08/22/17 23:15 08/23/17 20:38 (Pneumovax-23 Inj) 25 mcg ONCE ONCE IM 08/24/17 10:00 08/24/17 10:01 (Flu (Quadrivalent) Vaccine Inj) 0.5 ml ONCE ONCE IM 08/24/17 10:00 08/24/17 10:01 (LaMICtal) 50 mg BID PO 08/23/17 02:30 08/23/17 22:18 (SEROquel) 50 mg HS PO 08/23/17 21:00 08/23/17 22:14 (Pepcid) 10 mg BID PO 08/23/17 21:00 08/23/17 22:13 (Lipitor) 40 mg DAILY PO 08/24/17 09:00 (Lopressor) 50 mg Q12HR PO 08/24/17 09:00 (Cozaar) 25 mg DAILY PO 08/24/17 09:00 Sodium Chloride 1,000 ml @ 75 mls/hr [id number] IV 08/24/17 07:52 08/29/17 07:51 UNV (Aspirin) 325 mg CHERRY PITTER PO 08/24/17 08:00 08/28/17 07:59 UNV (Benadryl) 50 mg CHERRY PITTER PO 08/24/17 08:00 08/28/17 07:59 UNV (fentaNYL INJ) 50 mcg CHERRY PITTER IV PUSH 08/24/17 08:00 08/28/17 07:59 UNV (Versed Inj) 1 mg CHERRY PITTER IV PUSH 08/24/17 08:00 08/28/17 07:59 UNV Vital Signs / I&O Vital Signs Date Time Temp Pulse Resp B/P (MAP) Pulse Ox O2 Delivery O2 Flow Rate FiO2 08/24/17 06:00 74 08/24/17 05:00 66 08/24/17 04:51 71 20 125/74 (91) 93 08/24/17 04:00 66 08/24/17 03:00 74 08/24/17 02:00 72 08/24/17 01:00 70 08/24/17 00:30 98.7 73 18 106/53 (70) 93 08/24/17 00:00 70 08/23/17 23:00 83 08/23/17 22:00 86 08/23/17 21:00 90 08/23/17 20:00 82 08/23/17 19:00 77 08/23/17 19:00 99.0 84 18 151/81 (104) 95 08/23/17 18:00 78 08/23/17 17:00 76 08/23/17 16:00 82 08/23/17 15:30 98.5 69 20 141/75 (97) 94 08/23/17 15:00 84 08/23/17 14:00 76 08/23/17 13:00 74 08/23/17 12:00 72 08/23/17 11:30 98.6 69 20 126/76 (93) 97 08/23/17 11:00 74 08/23/17 10:00 72 08/23/17 09:00 76 08/23/17 08:00 76 I/O 08/23/17 08/23/17 08/23/17 08/24/17 08/24/17 08/24/17 07:00 15:00 23:00 07:00 15:00 23:00 Intake Total 480 ml 2024 ml 300 ml Output Total 350 ml 300 ml 500 ml Balance 130 ml 1724 ml -200 ml Intake Oral 480 ml 600 ml 300 ml IV Total 1424 ml Output Urine Total 350 ml 300 ml 500 ml # Voids 1 # Bowel Movements 1 Physical Exam VSS, afebrile. No JVD Lungs: CTA Heart: RRR, no murmurs, gal, rubs. Ext: No c/c/e Neuro: Anxious. Non-focal. Laboratory Laboratory Tests Test 08/23/17 08:57 08/23/17 11:39 08/23/17 18:45 08/24/17 04:48 Blood Urea Nitrogen 22 MG/DL 23 MG/DL Creatinine 1.31 MG/DL 1.15 MG/DL Random Glucose 92 MG/DL 95 MG/DL Total Protein 6.9 GM/DL Albumin 3.4 GM/DL Calcium Level 8.4 MG/DL 7.7 MG/DL Alkaline Phosphatase 80 U/L Aspartate Amino Transf (AST/SGOT) 16 U/L Alanine Aminotransferase (ALT/SGPT) 20 U/L Total Bilirubin 0.3 MG/DL Sodium Level 134 MEQ/L 136 MEQ/L Potassium Level 4.3 MEQ/L 4.3 MEQ/L Chloride Level 101 MEQ/L 106 MEQ/L Carbon Dioxide Level 24.7 MEQ/L 23.2 MEQ/L Anion Gap 8 MEQ/L 7 MEQ/L Estimat Glomerular Filtration Rate 40 ML/MIN 47 ML/MIN Troponin I 0.21 NG/ML Triglycerides Level 127 MG/DL Cholesterol Level 173 MG/DL LDL Cholesterol 112 MG/DL HDL Cholesterol 35.3 MG/DL Cholesterol/HDL Ratio 4.90 RATIO Activated Partial Thromboplast Time 40.7 SEC 26.3 SEC 52.9 SEC Imaging Last 48 hours Impressions Chest X-Ray 08/22/17 0982 Signed Impressions: Service Date/Time: Tuesday, August 22, 2017 18:09 - CONCLUSION: 1. No acute cardiopulmonary disease. Jed Dolan MD Assessment and Plan Problem List: (1) NSTEMI (non-ST elevated myocardial infarction) ICD Codes: I21.4 - Non-ST elevation (NSTEMI) myocardial infarction Status: Acute (2) Hypercholesteremia ICD Codes: E78.00 - Pure hypercholesterolemia, unspecified (3) Bipolar 1 disorder ICD Codes: F31.9 - Bipolar disorder, unspecified (4) CKD (chronic kidney disease) ICD Codes: N18.9 - Chronic kidney disease, unspecified (5) Uncontrolled hypertension ICD Codes: I10 - Essential (primary) hypertension Status: Acute Assessment and Plan Long discussion with patient about her symptoms and finding. Considering her history of non-compliance and abnormal cardiac enzyme markers I have recommended we proceed with cardiac catheterization for further evaluation. Indications, benefits, risks including acute VT, CVA, VT/VF, , arterial injury, bleeding and possible need for emergency surgery were discussed. These risks are understood and accepted. She has CKD and will need another 24 hours of judicious IV fluid hydration. Will schedule cath for AM tomorrow. Change IV NTG to topical nitrates. Adjust meds. ARB added. See orders and consents. Code Status Full Discussed Condition With Patient and full time staff interpreter. Humberto Gonzalez MD Aug 24, 2017 08:07
[2017-08-24] MEDS ORDERED: PNEUMOCOCCAL POLYVALENT INJ 25 MCG/0.5 ML SYR IM ONE (10:00)
[2017-08-24] MEDS ORDERED: INFLUENZA VIRUS VACCINE (QUADRIVALENT) 0.5 ML SYR IM ONE (10:00)
[2017-08-24] MEDS: FLUTICASONE PROPIONATE 50 MCG/ACT 16 GM NASAL SPRAY NASAL SCH ×2 (10:09→20:19)
[2017-08-24] MEDS: NITROGLYCERIN 2% OINT 1 GM PACKET TOPICAL SCH ×2 (10:09→17:50)
[2017-08-24] MEDS: METOPROLOL TARTRATE 25 MG TAB PO SCH ×2 (10:10→20:20)
[2017-08-24] MEDS: LOSARTAN 25 MG TAB PO SCH (10:10)
[2017-08-24] MEDS: lamoTRIgine 25 MG TAB PO SCH ×2 (10:10→20:19)
[2017-08-24] MEDS: ASPIRIN EC 81 MG TABEC PO SCH (10:11)
[2017-08-24] MEDS: FAMOTIDINE 20 MG TAB PO SCH ×2 (10:12→20:19)
[2017-08-24] MEDS: DOCUSATE SODIUM 50 MG/SENNA 8.6 MG TAB PO SCH ×2 (10:12→20:19)
[2017-08-24] MEDS: ATORVASTATIN 40 MG TAB PO SCH (10:12)
[2017-08-24] MEDS: SODIUM CHLORIDE 0.9% FLUSH 10 ML FLUSH IV FLUSH SCH ×2 (10:25→20:18)
[2017-08-24 11:30] LABS: APTT (PATIENT) 49.4 SEC (24.3-30.1)
--- NOTE | 2017-08-24 13:39 | HHI.PR ---
Subjective Remarks Still having some mild dull chest pain that is worse with coughing. Still having a cough producing occasional sputum. No shortness of breath. Objective Vitals Vital Signs Date Time Temp Pulse Resp B/P (MAP) Pulse Ox O2 Delivery O2 Flow Rate FiO2 08/24/17 07:30 70 08/24/17 07:30 99.1 70 18 142/74 (96) 96 08/24/17 06:00 74 08/24/17 05:00 66 08/24/17 04:51 71 20 125/74 (91) 93 08/24/17 04:00 66 08/24/17 03:00 74 08/24/17 02:00 72 08/24/17 01:00 70 08/24/17 00:30 98.7 73 18 106/53 (70) 93 08/24/17 00:00 70 08/23/17 23:00 83 08/23/17 22:00 86 08/23/17 21:00 90 08/23/17 20:00 82 08/23/17 19:00 77 08/23/17 19:00 99.0 84 18 151/81 (104) 95 08/23/17 18:00 78 08/23/17 17:00 76 08/23/17 16:00 82 08/23/17 15:30 98.5 69 20 141/75 (97) 94 08/23/17 15:00 84 08/23/17 14:00 76 I/O 08/23/17 08/23/17 08/23/17 08/24/17 08/24/17 08/24/17 07:00 15:00 23:00 07:00 15:00 23:00 Intake Total 480 ml 2024 ml 300 ml Output Total 350 ml 300 ml 500 ml Balance 130 ml 1724 ml -200 ml Intake Oral 480 ml 600 ml 300 ml IV Total 1424 ml Output Urine Total 350 ml 300 ml 500 ml # Voids 1 # Bowel Movements 1 Result Diagram: 08/23/1721908/24/17 0448 Objective Remarks GENERAL: Well-nourished, well-developed pleasant female patient. SKIN: Warm and dry. HEAD: Normocephalic. EYES: No scleral icterus. No injection or drainage. NECK: Supple, trachea midline. No JVD or lymphadenopathy. CARDIOVASCULAR: Regular rate and rhythm without murmurs, gallops, or rubs. RESPIRATORY: Breath sounds equal bilaterally. Clear to auscultation without wheezing. No accessory muscle use. GASTROINTESTINAL: Abdomen soft, non-tender, nondistended. EXTREMITIES: No cyanosis, or edema. NEUROLOGICAL: Awake, alert, and oriented x 3. Non-focal. Psychiatric: Mildly pressured speech, no hallucinations. Good eye contact. Mildly anxious. A/P Problem List: (1) NSTEMI (non-ST elevated myocardial infarction) ICD Code: I21.4 - Non-ST elevation (NSTEMI) myocardial infarction Status: Acute (2) Hypertensive urgency ICD Code: I16.0 - Hypertensive urgency (3) GERD (gastroesophageal reflux disease) ICD Code: K21.9 - Gastro-esophageal reflux disease without esophagitis Status: Acute (4) Bipolar disorder ICD Code: F31.9 - Bipolar disorder, unspecified Status: Chronic (5) Hypothyroidism ICD Code: E03.9 - Hypothyroidism, unspecified Status: Chronic Assessment and Plan 67 year-old female with a history of bipolar disorder, GERD, hypertension, hyperlipidemia, and hypothyroidism who presented to the emergency department on 08/22/2017 in [place] for evaluation of congestion, cough, shortness of breath, and chest pain. Evaluation showed elevated troponin I of 0.19. NSTEMI, chest pain, cough x 1 week/ viral URI - risk factors include tobacco use , HTN, sedentary lifestyle - Initial troponin 0.19 - 0.24 - On Heparin drip and Nitroglycerin patch - Cardiology consulted - followed by Dr. Bass - for [facility] tomorrow - Morphine 2 mg IV every 3 hours as needed for severe pain - Continuous cardiac telemetry to monitor for arrhythmia - Aspirin, statin (LDL 112), start metoprolol. Hypertensive urgency - resolved, now normotensive. + hx HTN but stopped taking medications. - now controlled - continue to monitor blood pressure trends and adjust treatment as indicated Dyspnea -Stable on RA GERD - Mylanta 30 ccs p.o. ordered during my visit - Pepcid 20 mg BID p.o. Mild renal insufficiency -Cont IVF pre-cath Bi-Polar Disorder - continue home Seroquel and Lamictal - Xanax 0.25 mg q6h PRN anxiety for patient's acute anxiety/juana Hypothyroidism - resume home medications DVT prophylaxis - on heparin drip for now Anila Chinchilla MD Aug 24, 2017 13:39
[2017-08-24] MEDS: ALPRAZolam 0.25 MG TAB PO PRN (14:09)
[2017-08-24] MEDS: PRAVASTATIN SOD 40 MG TAB PO SCH (20:18)
[2017-08-24] MEDS: SODIUM CHLOR 0.9% 1000 ML INJ 1,000 ML IV SCH (20:18)
[2017-08-24] MEDS: QUEtiapine FUMARATE 25 MG TAB PO SCH (20:19)
[2017-08-24] MEDS: HEPARIN-D5W 25,000 U/250 ML 250 ML IV PRN (20:25)
[2017-08-25] VITALS (27 sets, daily range): BP systolic 117–150; BP diastolic 74–83; PULSE 56–82; RESP 16–18; TEMP 98.1–98.9; O2SAT 93–97
[2017-08-25] MEDS: NITROGLYCERIN 2% OINT 1 GM PACKET TOPICAL SCH ×4 (00:15→18:00)
[2017-08-25] MEDS: MORPHINE SULFATE 4 MG/ML INJ IV PUSH PRN ×5 (00:16→22:25)
[2017-08-25] MEDS: LEVOTHYROXINE SODIUM 50 MCG TAB PO SCH (05:58)
[2017-08-25 06:46] LABS: BICARBONATE 23.1 MEQ/L (21.0-32.0); POTASSIUM 4.3 MEQ/L (3.5-5.1)
[2017-08-25] MEDS ORDERED: IOHEXOL 350 MG/ML 100 ML BTL (for Cath Lab) OTHER ONE (06:56)
[2017-08-25] MEDS ORDERED: guaiFENesin/DEXTROMETHORPHAN 200 MG/20 MG/10 ML CUP PO ONE (07:00)
[2017-08-25] MEDS ORDERED: HEPARIN-NS/PF INJ 1,000 ML ONE (07:07)
[2017-08-25] MEDS ORDERED: MIDAZOLAM HCL 2 MG/2 ML VIAL ONE ×2 (07:09→08:07)
[2017-08-25] MEDS ORDERED: HEPARIN SODIUM - IV 10,000 UNITS/10 ML VIAL ONE ×2 (07:34→08:27)
[2017-08-25] MEDS ORDERED: VERAPAMIL HCL 5 MG/2 ML VIAL ONE (07:42)
[2017-08-25] MEDS ORDERED: NITROGLYCERIN-D5W 50 MG/250 ML 250 ML ONE (07:42)
[2017-08-25] MEDS ORDERED: PRASUGREL 10 MG TAB ONE (08:17)
[2017-08-25] MEDS ORDERED: SODIUM CHLOR 0.9% 1000 ML INJ 1,000 ML IV SCH (08:27)
[2017-08-25] MEDS ORDERED: PRASUGREL 10 MG TAB PO ONE (08:30)
[2017-08-25] MEDS ORDERED: MISC INFORMATION XX ONE (08:30)
[2017-08-25] MEDS ORDERED: SODIUM CHLORIDE 0.9% FLUSH 10 ML FLUSH IV FLUSH PRN (08:30)
--- NOTE | 2017-08-25 08:39 | CATHPROC ---
[employer] HIS Report Study Information Study Number Admission Scheduled Start Study Start [id number] Aug 22 2017 7:11PM 08/24/2017 Aug 25 2017 7:00AM [place] Service Cardiac Catheterization Admit Source Facility Department Emergency department [facility] - [facility] Therapist Physician and Clinical Staff Initial MD Gonzalez, Humberto Car Blockerlarry Maldonado RN, Lorenzo RecordFranca Avery,RT(R) (BS) Scrub Justine Escalante RCIS TECH2 Procedures Performed Procedure Location (Site) Vessel Name Coronary Angiograms LCA Left Coronary Coronary Angiograms RCA Right Coronary Drug Eluting Inflatio RCA Ost Right Coronary L Heart Cath Pacemaker Temp Fem Vein (right) Femoral Vein Rotablator RCA Ost Right Coronary Wire insertion Fem Art (right) Femoral Art Equipment Time Form Drafter Description Size Mfg Part Number Used/Scraped [id number] 08:08 CASTILLO CHRISTIANSEN PACING CATHETER J CURVE FR 5 Used *[id number] TRANSDUCER, TRUWAVE [id number] 07:06 CASTILLO CHRISTIANSEN * Used W/STOCKCOCK *[id number] 07:54 BOSTON SCIENTIFIC CATHETER, FR1.5 ROTA-LINK FR 1.5 Used *[id number] 07:49 [employer]OSTON SCIENTIFIC WIRE, ROTA-WIRE FLOPPY 330CM 330CM Used *[id number] *[id number] *[id number] *[id number] *[id number] 07:06 Spotsetter INDUSTRIES PACK, CCL CUSTOM * Used *[id number] 07:06 Spotsetter PACER PEN, SKIN DUAL W/ RULER * Used *[id number] 08:08 MEDTRONIC STENT, 3.0 12MM JANY 3.0 12MM Used *[id number] 08:10 Cozy MEDICAL 30 AARCELI INDEFLATOR Used *[id number] 07:39 Cozy MEDICAL SHEATH, FR5.5 PRELUDE 11CM FR 5 [id number] Used [id number] 07:06 Cozy MEDICAL SHEATH, FR6.5 PRELUDE 11CM FR 6.5 038ACT Used *[id number] 07:34 Cozy MEDICAL SHEATH, FR7.5 PRELUDE 11CM FR 7.5 11CM Used [id number] 07:06 Cozy MEDICAL WIRE, 3MMJ .035 180CM 180CM Used *[id number] 07:06 NAMIC MANIFOLD, 4 PORT * Used *[id number] 07:06 NYCOMED OMNIPAQUE, 350 MG, 150ML 150ML [id number] Used [id number] 07:06 wikifolio MEDICAL BLANKET,WARM AIR CCL * Used *[id number] Equipment Model, Serial, Lot Number and Expiration Data Description Model Number Serial Number Lot Number Expiration Date STENT, 3.0 12MM JANY [id number] 05-22-2019 History: Current Medications Medication Dosage/Unit Route Frequency Last Date/Time Taken Beta Shaye Statins (any) History: Allergies Allergy Reaction Macrodantin RASH Penicillin RASH nitrofurantoin RASH penicillin G RASH History: Risk Factors Family History of Hypertension Dyslipidemia Previous SD Previous Heart Failure Premature CAD Yes Yes No No No Prior Valve Prior PCI Prior CABG Surgery No No No Cerebrovascular Peripheral Artery Chronic Lung On Dialysis Diabetes Disease Disease Disease No No No No No History: Stress Tests Stress or Imaging Studies Performed No History: Other Current Smoker Method Quit No Cigarettes 15 Years Ago Labs Hgb (g/dl) Hct (%) WBC (l/cumm) Platelets (thousands) 11.60-17.00 35.00-51.00 4.00-11.00 150.00-450.00 13.4 40.5 15.5 324 Glucose (mg/dl) BUN (mg/dl) Creatinine (mg/dl) BUN:Creatinine (1:x) 74.00-106.00 7.00-18.00 0.50-1.30 10.00-20.00 95 23 1.1 20.9 Na (meq/l) K (meq/l) 136.00-145.00 3.50-5.10 136 4.3 INR (PTT:PT) 0.90-1.10 0.9 CPK-MB (ng/ML) 0.50-3.60 Not Drawn Medication Medication Total Dose (Bolus/Oral) Medication Total Dosage/Unit 1% XYLOCAINE 40 mL EFFIENT 60 mg FENTANYL 50 mcg HEPARIN 01718 units NTG (IC) 700 mcg VERSED 3 mg Medications (Bolus/Oral) Medication Time Given Dosage/Unit Administered By Reason VERSED 08/25/2017 7:14:51 AM 2 mg Lorenzo Maldonado RN 2 mg VERSED given in lab by Lorenzo Maldonado RN in Left Forearm via Peripheral IV. 1% XYLOCAINE 08/25/2017 7:15:38 AM 20 mL Humberto Gonzalez 20 mL 1% XYLOCAINE given in lab by Humberto Gonzalez in Right Groin via Subcutaneous. NTG (IC) 08/25/2017 7:28:54 AM 200 mcg Justine Escalante 200 mcg NTG (IC) given in lab by Justine Escalante, CONSULTING SYSTEMS ENGINEER TECH2 in Right Groin via Intra-coronary. 1% XYLOCAINE 08/25/2017 7:36:07 AM 20 mL Joel QUIJANO, Lorenzo 20 mL 1% XYLOCAINE given in lab by Joel QUIJANO, Lorenzo in Right Groin via Subcutaneous. HEPARIN 08/25/2017 7:36:21 AM 4000 units Joel QUIJANO, Lorenzo 4000 units HEPARIN given in lab by Lorenzo Maldonado RN in Left Forearm via Peripheral IV. FENTANYL 08/25/2017 7:48:15 AM 25 mcg Joel QUIJANO, Lorenzo 25 mcg FENTANYL given in lab by Lorenzo Maldonado RN in Left Forearm via Peripheral IV. Ordered by Humberto Hernandez. NTG (IC) 08/25/2017 7:49:38 AM 100 mcg Humberto Gonzalez 100 mcg NTG (IC) given in lab by Humberto Gonzalez in Right Groin via Intra-coronary. HEPARIN 08/25/2017 7:52:05 AM 3000 units Joel QUIJANO, Lorenzo 3000 units HEPARIN given in lab by Joel QUIJANO, Lorenzo in Left Forearm via Peripheral IV. Ordered by Humberto Ontiveros. NTG (IC) 08/25/2017 8:03:42 AM 100 mcg Humberto Gonzalez 100 mcg NTG (IC) given in lab by Humberto Gonzalez in Right Groin via Intra-coronary. FENTANYL 08/25/2017 8:07:48 AM 25 mcg Joel QUIJANO, Lorenzo 25 mcg FENTANYL given in lab by Lorenzo Maldonado RN in Left Forearm via Peripheral IV. Ordered by Humberto Hernandez. VERSED 08/25/2017 8:08:47 AM 1 mg Joel QUIJANO, Lorenzo 1 mg VERSED given in lab by Lorenzo Maldonado RN in Left Forearm via Peripheral IV. HEPARIN 08/25/2017 8:09:37 AM 2000 units Joel QUIJANO, Lorenzo 2000 units HEPARIN given in lab by Lorenzo Maldonado RN in Left Forearm via Peripheral IV. NTG (IC) 08/25/2017 8:13:57 AM 100 mcg Biankaella, Humberto 100 mcg NTG (IC) given in lab by Humberto Gonzalez in Right Groin via Intra-coronary. NTG (IC) 08/25/2017 8:16:33 AM 200 mcg Danayttella, Humberto 200 mcg NTG (IC) given in lab by Humberto Gonzalez in Right Groin via Intra-coronary. HEPARIN 08/25/2017 8:28:22 AM 2000 units Lorenzo Maldonado RN 2000 units HEPARIN given in lab by Lorenzo Maldonado RN in Left Forearm via Peripheral IV. EFFIENT 08/25/2017 8:35:27 AM 60 mg Lorenzo Maldonado RN 60 mg EFFIENT given in lab by Lorenzo Maldonado RN via Oral. Medication (Drip) Medication Time Given Dosage/Unit Concentration/Unit Diluent (ml) Solutio n IV Solutions 08/25/2017 7:00:20 AM 0 mL (IV) 500 NaCl .9 IV Solutions given in lab by Lorenzo Maldonado RN in Left Forearm via Peripheral IV. Pump/Drip Flow = 30 m l/hr using NaCl .9. Initial Case Assessment Cardiovascular HR Rhythm NIBP Chest Pain 72 reg 150/77 0 Edema Present Skin color Skin None Normal Warm Dry Circulatory - Right Pulses Dorsalis Pedis Femoral 1 2 Scale (0,1,2,3,4,d) Circulatory - Left Pulses Dorsalis Pedis Femoral 1 2 Scale (0,1,2,3,4,d) Circulatory - Lower Extremities Color Lower Right Color Lower Left Normal Normal Neurological State Oriented to time-place- Alert Moves all extremities person Respiration - General Respiration Rate SpO2 (%) (B/min) 19 96 Chronological Log Time Study Chronological Log 6:56:46 Patient arrived via Bed. 6:56:52 Patient Name, D.O.B, / Armband Verified By R.N. 6:56:58 Consent signed by the physician and the patient and verified by the [facility]rap[facility] staff. 7:00:03 Pre-op and post- op instructions given; patient acknowledges understanding of instructions. 7:00:04 Verbal Stimulation=2 Physical Stimulation=2 Airway=2 Respiration=2 TOTAL=8. (0=absent, 1=li mited, 2=present) 7:00:05 Presedation assessment performed by [facility] Therapist RN. 7:00:13 Patient has been NPO for More than 6Hrs. 7:00:16 Skin Breakdown none per pt 7:00:17 Patient Warmer Placed on the Table. 7:00:18 Kala Prominences Protected 7:00:19 A # 20 IV was noted in the Upper Arm (left). Grade = 0 7:00:20 A # 20 IV was noted in the Forearm (left). Grade = 0 7:00:20 IV Solutions given in lab by Lorenzo Maldonado RN in Left Forearm via Peripheral IV. Pump/Drip F low = 30 ml/hr using NaCl .9. 7:00:21 History and physical on the chart or being dictated. Assessment: Initial Case, HR=72 BPM, Rhythm=reg, CDGL=728/77 mmhg, Chest Pain=0, Edema=None, Col or=Normal, Skin = Warm, Dry Right Pulses: Darío Ped=1, Femoral=2 Left Pulses: Darío Ped=1, Femoral=2 7:00:21 Lower Right Extremities: Color=Normal Lower Left Extremities: Color=Normal Neurological: State=Alert, Ox3, COURTNEY Respiration: Resp=19 B/min, SpO2=96 % Vitals capture started with the following parameters, Patient=Adult, Interval=5 min, Initial Pre rbpbb=809 mmHg, 7:02:11 Deflation Rate=5 mmHg, Cuff placed on Left Arm 7:03:22 HR=84 bpm, YFTS=078/77 mmhg, SpO2=97.0 %, Resp=16 B/min, Pain=0, Olga=10, Jacobson=2 7:04:01 Reference ECG taken 7:05:00 MD arrived. 7:07:52 HR=74 bpm, TADD=090/80 mmhg, SpO2=96.0 %, Resp=18 B/min, Pain=0, Olga=10, Jacobson=2 7:07:53 A # 20 IV was noted in the Forearm (right). Grade = 0 7:08:30 Bilateral groins prepped with 2% chlorhexidine, and draped after a 3 minute waiting time. 7:09:06 Reference ECG taken 7:12:49 HR=78 bpm, HGHP=066/84 mmhg, SpO2=98.0 %, Resp=20 B/min, Pain=0, Olga=10, Jacobson=2 7:13:25 Pressure channel 1 zeroed. Time Out. Correct patient, correct procedure, correct physician, power injector not loaded with contrast with surgical 7:14:32 team present. Time Out Concurred by MD and individual staff in procedure. 7:14:39 Case Start 7:14:51 2 mg VERSED given in lab by Lorenzo Maldonado RN in Left Forearm via Peripheral IV. 7:15:38 20 mL 1% XYLOCAINE given in lab by Humberto Gonzalez in Right Groin via Subcutaneous. 7:17:20 Access site was Right Femoral Artery. 7:17:25 A SHEATH, FR6.5 PRELUDE 11CM FR 6.5 was advanced into the Fem Art (right) using the Percutan eous technique. 7:17:50 HR=68 bpm, QGOD=792/69 mmhg, SpO2=93.0 %, Resp=15 B/min, Pain=0, Olga=10, Jacobson=2 A JL 4.0 INFINITI CATHETER FR 6 was advanced over a wire. OMNIPAQUE, 350 MG, 150ML 150ML was use d for 7:19:07 injections. Recorded Pressure: Ao, HR=72, Condition=Condition 1 7:19:50 (Aorta) Ao 157/77/108 7:20:04 The LCA was injected and visualized at various angles. OMNIPAQUE, 350 MG, 150ML 150ML used. 7:22:51 HR=39 bpm, EHOK=051/75 mmhg, SpO2=94.0 %, Resp=14 B/min, Pain=0, Olga=10, Jacobson=2 7:25:08 Catheter was removed A 3DRC INFINITI CATHETER FR 6 was advanced over a wire. OMNIPAQUE, 350 MG, 150ML 150ML was used for 7:25:09 injections. 7:26:55 The RCA was injected and visualized at various angles. OMNIPAQUE, 350 MG, 150ML 150ML used. 7:27:48 HR=76 bpm, UBZJ=923/77 mmhg, SpO2=92.0 %, Resp=14 B/min, Pain=0, Olga=10, Jacobson=2 7:28:54 200 mcg NTG (IC) given in lab by Justine Escalante RCIS TECH2 in Right Groin via Intra-coronary. 7:32:47 HR=73 bpm, SKWO=835/82 mmhg, SpO2=94.0 %, Resp=12 B/min, Pain=0, Olga=10, Jacobson=2 7:33:22 Catheter was removed A SHEATH, FR7.5 PRELUDE 11CM FR 7.5 11CM was exchanged in the Fem Art (right). This was necessar y in order to 7:33:29 accomodate a larger catheter. 7:36:07 20 mL 1% XYLOCAINE given in lab by Lorenzo Maldonado RN in Right Groin via Subcutaneous. 7:36:21 4000 units HEPARIN given in lab by Lorenzo Maldonado RN in Left Forearm via Peripheral IV. 7:36:49 Access site was Right Femoral Vein. 7:37:50 HR=72 bpm, TZNU=752/75 mmhg, SpO2=94.0 %, Resp=13 B/min, Pain=0, Olga=10, Jacobson=2 7:38:26 A SHEATH, FR5.5 PRELUDE 11CM FR 5 was advanced into the Fem Art (right) using the Percutaneo us technique. 7:38:55 A PACING CATHETER J CURVE FR 5 was advanced to the right ventricle. Rate = 50, Output = ~OUT PUT~, MA = 5. 7:41:21 Activated Clotting Time Drawn 7:42:52 HR=72 bpm, ITHH=875/74 mmhg, SpO2=95.0 %, Resp=15 B/min A AR 1 SH GUIDE CATHETER FR 7 was advanced over a wire. OMNIPAQUE, 350 MG, 150ML 150ML was used for 7:42:56 injections. 7:45:19 Catheter was removed 7:45:51 ACT (Normal Range 90-180) = 256 A JR 4.0 SH GUIDE CATHETER FR 7 was advanced over a wire. OMNIPAQUE, 350 MG, 150ML 150ML was use d for 7:45:58 injections. 7:47:53 HR=71 bpm, FCHG=648/72 mmhg, SpO2=96.0 %, Resp=12 B/min 7:48:15 25 mcg FENTANYL given in lab by Lorenzo Maldonado RN in Left Forearm via Peripheral IV. Ordered b Humberto Ojeda. 7:49:38 100 mcg NTG (IC) given in lab by Humberto Gonzalez in Right Groin via Intra-coronary. 7:51:11 A WIRE, ROTA-WIRE FLOPPY 330CM 330CM was inserted via Fem Art (right). 7:51:38 Interventional wire has crossed the lesion 7:52:05 3000 units HEPARIN given in lab by Lorenzo Maldonado RN in Left Forearm via Peripheral IV. Ordere d by Humberto Gonzalez. 7:52:56 HR=69 bpm, QINS=572/75 mmhg, SpO2=95.0 %, Resp=13 B/min 7:57:53 HR=67 bpm, NJGG=479/82 mmhg, SpO2=93.0 %, Resp=13 B/min 7:58:09 Activated Clotting Time Drawn A CATHETER, FR1.5 ROTA-LINK FR 1.5 was advanced throuogh the JR 4.0 SH GUIDE CATHETER FR 7 into the Fem Art 7:59:21 (right). 8:00:52 ACT failed. A CATHETER, FR1.5 ROTA-LINK FR 1.5 was advanced through the JR 4.0 SH GUIDE CATHETER FR 7 over a WIRE, 8:01:16 ROTA-WIRE FLOPPY 330CM 330CM. After placement in the RCA Ost the rotoblator was set from 126 ,000 rpm to 108,000 rpm and was passed 1 times through the lesion. 8:02:44 Rotablator removed 8:02:54 HR=70 bpm, RXJP=070/76 mmhg, SpO2=94.0 %, Resp=12 B/min 8:03:42 100 mcg NTG (IC) given in lab by Humberto Gonzalez in Right Groin via Intra-coronary. A STENT, 3.0 12MM JANY 3.0 12MM was advanced through a JR 4.0 SH GUIDE CATHETER FR 7 over a WIRE , ROTA- 8:07:33 WIRE FLOPPY 330CM 330CM. 8:07:48 25 mcg FENTANYL given in lab by Lorenzo Maldonado RN in Left Forearm via Peripheral IV. Ordered Humberto Ibarra. 8:07:51 HR=72 bpm, BTYW=072/83 mmhg, SpO2=96.0 %, Resp=12 B/min, Pain=0, Olga=10, Jacobson=2 8:08:47 1 mg VERSED given in lab by Lorenzo Maldonado RN in Left Forearm via Peripheral IV. 8:09:03 ACT (Normal Range 90-180) = 226 8:09:37 2000 units HEPARIN given in lab by Lorenzo Maldonado RN in Left Forearm via Peripheral IV. A STENT, 3.0 12MM JANY 3.0 12MM was deployed using a 30 ARACELI INDEFLATOR at 15 atmospheres for 50 seconds in 8:10:21 the RCA Ost. 8:12:13 Re-inflated the stent balloon in the RCA Ost to 20 ARACELI for 32 seconds. 8:12:52 HR=68 bpm, UJLF=606/82 mmhg, SpO2=92.0 %, Resp=12 B/min, Pain=0, Olga=10, Jacobson=2 8:13:32 Delivery device removed 8:13:57 100 mcg NTG (IC) given in lab by Humberto Gonzalez in Right Groin via Intra-coronary. 8:16:08 Wire removed 8:16:33 200 mcg NTG (IC) given in lab by Humberto Gonzalez in Right Groin via Intra-coronary. 8:17:55 HR=70 bpm, UGYL=768/85 mmhg, SpO2=89.0 %, Resp=14 B/min, Pain=0, Olga=10, Jacobson=2 8:18:20 Catheter was removed 8:18:22 Catheter was removed 8:19:47 Case End 8:20:27 Activated Clotting Time Drawn 8:22:54 HR=67 bpm, GCJO=410/88 mmhg, SpO2=92.0 %, Resp=12 B/min, Pain=0, Olga=10, Jacobson=2 In the Fem Art (right) the SHEATH, FR7.5 PRELUDE 11CM FR 7.5 11CM was sutured in place by Justine Vásquez RCIS 8:22:54 TECH2. 8:23:23 In the Fem Vein (right) the SHEATH, FR5.5 PRELUDE 11CM FR [address] by Justine Escalante RCIS TECH2. 8:25:05 ACT (Normal Range 90-180) = 269 8:26:20 Catheter(s) removed without difficulty 8:26:25 Sterile dressing applied to site 8:26:30 No case complications noted. 8:26:35 Bedside Report will be given. 8:26:36 Implantable Device card placed in patient's chart. 8:26:39 A Left Heart Cath was performed. 8:27:53 HR=67 bpm, KYJW=090/78 mmhg, SpO2=93.0 %, Resp=12 B/min, Pain=0, Olga=10, Jacobson=2 8:28:22 2000 units HEPARIN given in lab by Lorenzo Maldonado RN in Left Forearm via Peripheral IV. 8:30:47 CIC called. Spoke to Concepcion. 8:32:51 Vitals capture stopped. 8:35:01 Patient moved to stretcher 8:35:27 60 mg EFFIENT given in lab by Lorenzo Maldonado RN via Oral. End Study - Contrast Media Used In Study Contrast Total Opened (mL) Total Used (mL) Total Wasted (mL) Omnipaque 170 170 0 End Study - Maximum Contrast Load Max Contrast Load (mL) 345.5 End Study - Radiation Exposure Fluoro Time (minutes) 16.3 End Study - Patient Disposition Complications Transferred To Interventional Outcome No Telemetry Bed successful
[2017-08-25] MEDS: FLUTICASONE PROPIONATE 50 MCG/ACT 16 GM NASAL SPRAY NASAL SCH ×2 (09:00→20:54)
[2017-08-25] MEDS: SODIUM CHLORIDE 0.9% FLUSH 10 ML FLUSH IV FLUSH SCH ×2 (09:00→20:53)
[2017-08-25] MEDS: ASPIRIN 81 MG CHEW TAB PO SCH (09:00)
[2017-08-25] MEDS ORDERED: SODIUM CHLORIDE 0.9% FLUSH 10 ML FLUSH IV FLUSH SCH (09:00)
[2017-08-25] MEDS: DOCUSATE SODIUM 50 MG/SENNA 8.6 MG TAB PO SCH ×2 (09:00→20:53)
[2017-08-25] MEDS: LOSARTAN 25 MG TAB PO SCH (09:05)
[2017-08-25] MEDS: METOPROLOL TARTRATE 25 MG TAB PO SCH ×2 (09:06→20:55)
[2017-08-25] MEDS: FAMOTIDINE 20 MG TAB PO SCH ×2 (09:06→20:54)
[2017-08-25] MEDS: lamoTRIgine 25 MG TAB PO SCH ×2 (09:06→20:54)
[2017-08-25] MEDS: ATORVASTATIN 40 MG TAB PO SCH (09:06)
--- NOTE | 2017-08-25 09:27 | RSPPFT ---
DATE OF PROCEDURE: 08/24/17 COMMENTS: Spirometry shows FVC of 1.6 at 65% of predicted, FEV1 of 1.2 at 62%, FEV1/FVC ratio is normal. Flow is normal at FEF 25, decreased at FEF 50 and FEF 75 and FEF 25-75. There is no response after bronchodilator treatment. Flow volume loop indicates an obstructive pattern. IMPRESSION: 1. Mild small airways obstructive lung disease. 2. No response after bronchodilator treatment. 3. Underlying restrictive disease is not ruled out from this study.
[2017-08-25] MEDS: ALPRAZolam 0.25 MG TAB PO PRN ×2 (10:05→17:05)
--- NOTE | 2017-08-25 11:57 | MA ---
cc: ASH TORRES M.D. DATE: 08/25/2017 PROCEDURE PERFORMED 1. Left heart catheterization. 2. Coronary arteriography. 3. Rotational atherectomy. 4. Drug-eluting stent implant, ostial right coronary artery. PROCEDURE TECHNIQUE The patient was brought to the cardiac catheterization laboratory and area of the right and left groins prepped and draped in the usual sterile manner. Following 50 mL of 1% Xylocaine for local anesthesia a 6 Lebanese short introducer sheath was placed in the right femoral artery via the modified Seldinger technique. Through this introducer sheath a 6 Lebanese diagnostic catheter system including a JL4 and 3-D RC were used for the left heart study. The left ventriculogram was not performed in the interest of conserving contrast due to chronic kidney disease. Following the diagnostic procedure it was decided to proceed with percutaneous intervention of the right coronary artery. The 6 Lebanese introducer sheath was exchanged over a wire for a 7 Lebanese short introducer sheath in the right femoral artery. A 5 Lebanese sheath was placed in the right femoral vein via modified Seldinger technique for placement of a transvenous pacing wire during the procedure. It was decided to proceed with rotational atherectomy due to heavy calcification in the ostium of the right coronary artery at the site of the lesion. Initially an AR-1, 7 Lebanese guide catheter with side holes was utilized but did not seat properly and this was exchanged for a JR4, 7 Lebanese guiding catheter with side holes. This was used for the remainder of the procedure. Following intravenous heparin to obtain an ACT of 300 seconds the Rotafloppy wire was passed into the distal right coronary artery without difficulty. Over this wire a Rotablator 1.5 mm bur was then passed across the lesion multiple times. The bur was removed. The residual stenosis was greater than 50% and this required implantation of a stent. An Integrity Resolute 3.0 x 12 mm stent was then deployed across the stenosis initially at a pressure of 15 atmospheres for 45 seconds. The delivery balloon was then deflated and pulled back to the ostium, inflated to 20 atmospheres to flare the ostium of the stent and RCA. The balloon catheter was deflated and removed. When good results were seen the guidewire was removed and final pictures were taken. The patient tolerated the procedure well. There were no immediate complications. The pacing wire was then removed at the completion of the procedure. The introducer sheaths will be removed later today when the ACT has decreased safely. The patient was transferred back to her room in stable condition. HEMODYNAMIC DATA The left ventricle was not entered. For complete hemodynamic details please see accompanying paperwork. ANGIOGRAPHIC FINDINGS LEFT VENTRICLE: Not performed. LEFT MAIN CORONARY ARTERY: The left main coronary artery arises normally from the left coronary sinus. The left main has a mild 10-15% narrowing, is a relatively short vessel with an early takeoff of the circumflex artery. LEFT ANTERIOR DESCENDING ARTERY: The LAD is a moderate size vessel whose course is to the apex. The LAD gives rise to two diagonal branches. The LAD has a 10-15% ostial stenosis and a tubular area of 15% in the midsegment. The first diagonal branch is very small in caliber and has a 95% ostial stenosis. The second diagonal branch is large in caliber and has a 15-20% ostial stenosis. CIRCUMFLEX ARTERY: Nondominant. The main circumflex gives rise to a high lateral branch, posterolateral branch and a posterior ventricular branch. The main circumflex has mild irregularities. The high lateral branch is moderate in caliber and normal. The posterolateral branch is large in caliber and gives rise to superior and inferior subdivisions. There is 10-15% narrowing noted in there. The continuation of the circumflex is moderate caliber and gives rise to a posterior ventricular branch which is small in caliber and tortuous but otherwise normal. RIGHT CORONARY ARTERY: Dominant. There is heavy calcification seen at the ostium of the right coronary artery with a 85-90% stenosis. The remainder of the right coronary is large in caliber and dominant. It gives rise to a posterior descending branch and a posterior ventricular branch. ANGIOGRAPHIC RESULTS At the ostium of the right coronary vessel of approximately 3.25 mm in caliber there is a type B2 lesion obstructing the lumen by up to 90% of its diameter. Following rotational atherectomy there is still greater than 50-60% stenosis. Following stent implant there is less than 0% residual stenosis. No intimal disruption is seen. Distal flow is VINCE grade III at the completion of the procedure. There is a small conus branch that is jailed with the stent but still has adequate flow at the completion of the procedure. DIAGNOSIS 1. Severe two-vessel coronary atherosclerosis. 2. Successful rotational atherectomy/drug-eluting stent implant of the ostium of the right coronary artery. COMMENT/RECOMMENDATIONS Angiographically, this patient had an excellent result today which should be very durable. The small diagonal branch is severely diseased but medical therapy will be continued for that. I will obtain an echocardiogram to evaluate her left ventricular function since a left ventriculogram was not performed today in the interest of conserving contrast because of her renal insufficiency. Plans are to discharge her to home tomorrow. Continue intravenous fluids tonight. The patient has been loaded with Effient already in the landscape laborer and will continue on 10 mg a day with low-dose aspirin. MD LON Bear/BT /8:31 AM /11:28 AM
--- NOTE | 2017-08-25 13:07 | HHI.PR ---
Subjective Remarks Patient has no complaints other than having to lay flat. Objective Vitals Vital Signs Date Time Temp Pulse Resp B/P (MAP) Pulse Ox O2 Delivery O2 Flow Rate FiO2 08/25/17 11:01 98.6 63 18 139/82 (101) 97 08/25/17 08:45 98.6 62 18 125/79 (94) 95 08/25/17 07:42 75 08/25/17 07:01 70 08/25/17 06:00 72 08/25/17 05:00 73 08/25/17 04:00 98.4 65 16 120/74 (89) 93 08/25/17 04:00 62 08/25/17 03:00 63 08/25/17 02:00 61 08/25/17 01:00 56 08/25/17 00:00 68 08/25/17 00:00 98.1 70 16 124/74 (91) 95 08/24/17 23:00 72 08/24/17 22:00 72 08/24/17 21:00 66 08/24/17 20:00 76 08/24/17 20:00 98.6 73 16 144/83 (103) 93 08/24/17 19:00 68 08/24/17 18:00 62 08/24/17 17:00 64 08/24/17 16:00 56 08/24/17 15:11 56 08/24/17 15:11 97.9 56 20 107/66 (80) 93 08/24/17 15:00 58 08/24/17 14:00 70 I/O 08/24/17 08/24/17 08/24/17 08/25/17 08/25/17 08/25/17 07:00 15:00 23:00 07:00 15:00 23:00 Intake Total 300 ml 1232 ml 1162 ml Output Total 500 ml 600 ml 650 ml Balance -200 ml 632 ml 512 ml Intake Oral 300 ml 480 ml 240 ml IV Total 752 ml 922 ml Output Urine Total 500 ml 600 ml 650 ml # Voids 1 # Bowel Movements 0 0 Result Diagram: 08/23/17 0220 08/25/17 0618 Objective Remarks GENERAL: Well-nourished, well-developed pleasant female patient. SKIN: Warm and dry. HEAD: Normocephalic. EYES: No scleral icterus. No injection or drainage. NECK: Supple, trachea midline. No JVD or lymphadenopathy. CARDIOVASCULAR: Regular rate and rhythm without murmurs, gallops, or rubs. RESPIRATORY: Breath sounds equal bilaterally. Clear to auscultation without wheezing. No accessory muscle use. GASTROINTESTINAL: Abdomen soft, non-tender, nondistended. EXTREMITIES: No cyanosis, or edema. NEUROLOGICAL: Awake, alert, and oriented x 3. Non-focal. Psychiatric: Mildly pressured speech, no hallucinations. Good eye contact. Mildly anxious. Procedures Left heart catheterization A/P Problem List: (1) NSTEMI (non-ST elevated myocardial infarction) ICD Code: I21.4 - Non-ST elevation (NSTEMI) myocardial infarction Status: Acute (2) Hypertensive urgency ICD Code: I16.0 - Hypertensive urgency (3) GERD (gastroesophageal reflux disease) ICD Code: K21.9 - Gastro-esophageal reflux disease without esophagitis Status: Acute (4) Bipolar disorder ICD Code: F31.9 - Bipolar disorder, unspecified Status: Chronic (5) Hypothyroidism ICD Code: E03.9 - Hypothyroidism, unspecified Status: Chronic Assessment and Plan 67 year-old female with a history of bipolar disorder, GERD, hypertension, hyperlipidemia, and hypothyroidism who presented to the emergency department on 08/22/2017 in [place] for evaluation of congestion, cough, shortness of breath, and chest pain. Evaluation showed elevated troponin I of 0.19. NSTEMI, chest pain, cough x 1 week/ viral URI - risk factors include tobacco use , HTN, sedentary lifestyle - Initial troponin 0.19 - 0.24 - On Heparin drip and Nitroglycerin patch - Cardiology consulted - followed by Dr. Bass -status post [facility] today showing stenosis at the ostium of the RCA status post atherectomy and stent - Morphine 2 mg IV every 3 hours as needed for severe pain - Continuous cardiac telemetry to monitor for arrhythmia - Aspirin, Effient statin (LDL 112), metoprolol. Hypertensive urgency - resolved, now normotensive. + hx HTN but stopped taking medications. - now controlled - continue to monitor blood pressure trends and adjust treatment as indicated Dyspnea -Stable on RA GERD - Mylanta 30 ccs p.o. ordered during my visit - Pepcid 20 mg BID p.o. Mild renal insufficiency -Cont IVF Bi-Polar Disorder - continue home Seroquel and Lamictal - Xanax 0.25 mg q6h PRN anxiety for patient's acute anxiety/juana Hypothyroidism - resume home medications DVT prophylaxis - on heparin drip for now Discharge Planning Anticipate discharge tomorrow Anila Chinchilla MD Aug 25, 2017 13:07
[2017-08-25] MEDS: QUEtiapine FUMARATE 25 MG TAB PO SCH (20:54)
[2017-08-25] MEDS: ACETAMINOPHEN/HYDROcodone 325 MG/5 MG TAB PO PRN (20:55)
[2017-08-25] MEDS: guaiFENesin/DEXTROMETHORPHAN 200 MG/20 MG/10 ML CUP PO PRN (20:55)
[2017-08-26] VITALS (30 sets, daily range): BP systolic 106–184; BP diastolic 55–97; PULSE 60–87; RESP 18–20; TEMP 98.3–99.4; O2SAT 92–98
[2017-08-26] MEDS: NITROGLYCERIN 2% OINT 1 GM PACKET TOPICAL SCH
[2017-08-26] MEDS: ALPRAZolam 0.25 MG TAB PO PRN ×3 (03:44→18:14)
[2017-08-26] MEDS: guaiFENesin/DEXTROMETHORPHAN 200 MG/20 MG/10 ML CUP PO PRN ×3 (03:44→21:35)
[2017-08-26 05:43] LABS: BICARBONATE 22.3 MEQ/L (21.0-32.0); POTASSIUM 3.9 MEQ/L (3.5-5.1)
[2017-08-26] MEDS: LEVOTHYROXINE SODIUM 50 MCG TAB PO SCH (06:14)
[2017-08-26] MEDS: ACETAMINOPHEN/HYDROcodone 325 MG/5 MG TAB PO PRN ×3 (06:58→18:18)
--- NOTE | 2017-08-26 08:51 | PD.CARD.PN ---
Subjective Subjective Remarks No CP or SOB. Continues to C/O cough. Groin site stable. Very anxious. BP is improved. Objective Medications Current Medications Medications (Trade) Dose Ordered Sig/Veronica Route Start Time Stop Time Status Last Admin (NS Flush) 2 ml UNSCH PRN IV FLUSH 08/22/17 19:15 08/23/17 17:34 (NS Flush) 2 ml BID IV FLUSH 08/22/17 21:00 08/25/17 20:53 (Zofran Inj) 4 mg Q6H PRN IVP 08/22/17 19:15 (Tylenol) 650 mg Q6H PRN PO 08/22/17 19:15 ([place] 5-325 Mg) 1 tab Q4H PRN PO 08/22/17 19:15 08/26/17 06:58 (Love-Colace) 1 tab BID PO 08/22/17 21:00 08/24/17 10:12 (Milk Of Magnesia Liq) 30 ml Q12H PRN PO 08/22/17 19:15 (Senokot) 17.2 mg Q12H PRN PO 08/22/17 19:15 08/24/17 10:14 (Dulcolax Supp) 10 mg DAILY PRN RECTAL 08/22/17 19:15 (Lactulose Liq) 30 ml DAILY PRN PO 08/22/17 19:15 (Flonase Ibrahima Spr) 1 spray BID NASAL 08/22/17 22:00 08/25/17 20:54 (Synthroid) 50 mcg DAILY@0600 PO 08/23/17 09:00 08/26/17 06:14 (Xanax) 0.25 mg Q6H PRN PO 08/22/17 23:15 08/26/17 03:44 (LaMICtal) 50 mg BID PO 08/23/17 02:30 08/25/17 20:54 (SEROquel) 50 mg HS PO 08/23/17 21:00 08/25/17 20:54 (Pepcid) 10 mg BID PO 08/23/17 21:00 08/25/17 20:54 (Lipitor) 40 mg DAILY PO 08/24/17 09:00 08/25/17 09:06 (Cozaar) 25 mg DAILY PO 08/24/17 09:00 08/25/17 09:05 (Aspirin) 325 mg [employer] PO 08/24/17 08:00 08/28/17 07:59 (Benadryl) 50 mg [employer] PO 08/24/17 08:00 08/28/17 07:59 08/25/17 06:29 (fentaNYL INJ) 50 mcg [employer] IV PUSH 08/24/17 08:00 08/28/17 07:59 (Versed Inj) 1 mg [employer] IV PUSH 08/24/17 08:00 08/28/17 07:59 (Morphine Inj) 3 mg Q3H PRN IV PUSH 08/24/17 10:15 08/25/17 22:25 (Robitussin Dm 200-20 Mg/10 ml Liq) 10 ml Q6H PRN PO 08/25/17 06:45 08/26/17 03:44 (Aspirin Chew) 81 mg DAILY PO 08/25/17 09:00 08/25/17 09:00 (Effient) 10 mg DAILY PO 08/26/17 09:00 (Toprol Xl) 100 mg DAILY PO 08/26/17 09:00 Vital Signs / I&O Vital Signs Date Time Temp Pulse Resp B/P (MAP) Pulse Ox O2 Delivery O2 Flow Rate FiO2 08/26/17 07:01 83 08/26/17 06:00 66 08/26/17 05:00 64 08/26/17 04:00 67 08/26/17 03:30 98.3 75 20 122/90 (101) 96 08/26/17 03:00 75 08/26/17 02:00 63 08/26/17 01:00 60 08/26/17 00:00 62 08/25/17 23:30 98.4 64 16 117/75 (89) 93 08/25/17 23:00 74 08/25/17 22:00 74 08/25/17 22:00 18 08/25/17 21:00 80 08/25/17 20:00 80 08/25/17 20:00 98.9 76 18 150/81 (104) 95 08/25/17 19:00 82 08/25/17 18:00 64 08/25/17 17:00 62 08/25/17 16:01 66 08/25/17 15:01 98.6 63 18 135/83 (100) 96 08/25/17 15:00 67 08/25/17 14:00 66 08/25/17 13:01 60 08/25/17 12:00 64 08/25/17 11:01 98.6 63 18 139/82 (101) 97 08/25/17 11:00 70 08/25/17 10:00 66 08/25/17 09:00 62 I/O 08/25/17 08/25/17 08/25/17 08/26/17 08/26/17 08/26/17 07:00 15:00 23:00 07:00 15:00 23:00 Intake Total 1162 ml 702 ml 480 ml Output Total 650 ml 800 ml 800 ml Balance 512 ml -98 ml -320 ml Intake Oral 240 ml 480 ml IV Total 922 ml 702 ml Output Urine Total 650 ml 800 ml 800 ml # Voids 1 3 # Bowel Movements 0 0 1 Physical Exam VSS, afebrile. No JVD Lungs: CTA Heart: RRR, no murmurs, gal, rubs. Ext: No c/c/e Neuro: Anxious. Non-focal. Laboratory Laboratory Tests Test 08/26/17 04:36 Blood Urea Nitrogen 16 MG/DL Creatinine 1.03 MG/DL Random Glucose 104 MG/DL Calcium Level 8.2 MG/DL Sodium Level 136 MEQ/L Potassium Level 3.9 MEQ/L Chloride Level 106 MEQ/L Carbon Dioxide Level 22.3 MEQ/L Anion Gap 8 MEQ/L Estimat Glomerular Filtration Rate 53 ML/MIN Assessment and Plan Problem List: (1) NSTEMI (non-ST elevated myocardial infarction) ICD Codes: I21.4 - Non-ST elevation (NSTEMI) myocardial infarction Status: Acute (2) Hypercholesteremia ICD Codes: E78.00 - Pure hypercholesterolemia, unspecified (3) Bipolar 1 disorder ICD Codes: F31.9 - Bipolar disorder, unspecified (4) CKD (chronic kidney disease) ICD Codes: N18.9 - Chronic kidney disease, unspecified (5) Uncontrolled hypertension ICD Codes: I10 - Essential (primary) hypertension Status: Acute (6) Arteriosclerotic heart disease (ASHD) ICD Codes: I25.10 - Atherosclerotic heart disease of [place] coronary artery without angina pectoris (7) Stented coronary artery ICD Codes: Z95.5 - Presence of coronary angioplasty implant and graft Assessment and Plan D/C NTP and IVF. Renal function stable. Doing well and stable CV status will be OK for d/c home from my standpoint. Continue current meds at home. Persisten cough workup and treatment per hospitalist. I will arrange follow up in the office in 2-3 weeks. See orders. Code Status Full Discussed Condition With Patient and staffing rn. Humberto Gonzalez MD Aug 26, 2017 08:51
--- NOTE | 2017-08-26 08:59 | HHI.PR ---
Subjective Remarks Mrs. Freitas states her cough is worse, associated with mild shortness of breath. Cannot cough up sputum. No chest pain. Objective Vitals Vital Signs Date Time Temp Pulse Resp B/P (MAP) Pulse Ox O2 Delivery O2 Flow Rate FiO2 08/26/17 07:01 83 08/26/17 06:00 66 08/26/17 05:00 64 08/26/17 04:00 67 08/26/17 03:30 98.3 75 20 122/90 (101) 96 08/26/17 03:00 75 08/26/17 02:00 63 08/26/17 01:00 60 08/26/17 00:00 62 08/25/17 23:30 98.4 64 16 117/75 (89) 93 08/25/17 23:00 74 08/25/17 22:00 74 08/25/17 22:00 18 08/25/17 21:00 80 08/25/17 20:00 80 08/25/17 20:00 98.9 76 18 150/81 (104) 95 08/25/17 19:00 82 08/25/17 18:00 64 08/25/17 17:00 62 08/25/17 16:01 66 08/25/17 15:01 98.6 63 18 135/83 (100) 96 08/25/17 15:00 67 08/25/17 14:00 66 08/25/17 13:01 60 08/25/17 12:00 64 08/25/17 11:01 98.6 63 18 139/82 (101) 97 08/25/17 11:00 70 08/25/17 10:00 66 08/25/17 09:00 62 I/O 08/25/17 08/25/17 08/25/17 08/26/17 08/26/17 08/26/17 07:00 15:00 23:00 07:00 15:00 23:00 Intake Total 1162 ml 702 ml 480 ml Output Total 650 ml 800 ml 800 ml Balance 512 ml -98 ml -320 ml Intake Oral 240 ml 480 ml IV Total 922 ml 702 ml Output Urine Total 650 ml 800 ml 800 ml # Voids 1 3 # Bowel Movements 0 0 1 Result Diagram: 08/23/1721908/26/17 0436 Objective Remarks GENERAL: Well-nourished, well-developed pleasant female patient. SKIN: Warm and dry. HEAD: Normocephalic. EYES: No scleral icterus. No injection or drainage. NECK: Supple, trachea midline. No JVD or lymphadenopathy. CARDIOVASCULAR: Regular rate and rhythm without murmurs, gallops, or rubs. RESPIRATORY: Breath sounds equal bilaterally. Clear to auscultation without wheezing. No accessory muscle use. GASTROINTESTINAL: Abdomen soft, non-tender, nondistended. EXTREMITIES: No cyanosis, or edema. NEUROLOGICAL: Awake, alert, and oriented x 3. Non-focal. Psychiatric: Nonpressured speech, no hallucinations or hallucinations. Good eye contact. Procedures Left heart catheterization A/P Problem List: (1) NSTEMI (non-ST elevated myocardial infarction) ICD Code: I21.4 - Non-ST elevation (NSTEMI) myocardial infarction Status: Acute (2) Hypertensive urgency ICD Code: I16.0 - Hypertensive urgency (3) GERD (gastroesophageal reflux disease) ICD Code: K21.9 - Gastro-esophageal reflux disease without esophagitis Status: Acute (4) Bipolar disorder ICD Code: F31.9 - Bipolar disorder, unspecified Status: Chronic (5) Hypothyroidism ICD Code: E03.9 - Hypothyroidism, unspecified Status: Chronic Assessment and Plan 67 year-old female with a history of bipolar disorder, GERD, hypertension, hyperlipidemia, and hypothyroidism who presented to the emergency department on 08/22/2017 in [place] for evaluation of congestion, cough, shortness of breath, and chest pain. Evaluation showed elevated troponin I of 0.19. NSTEMI, chest pain, cough x 1 week/ viral URI - risk factors include tobacco use , HTN, sedentary lifestyle - troponin 0.19 - 0.24 - s/p Heparin drip and Nitroglycerin patch - Cardiology consulted - followed by Dr. Bass -status post [facility] 08/25 showing stenosis at the ostium of the RCA status post atherectomy and stent - cont cozaar, Aspirin, Effient statin (LDL 112), metoprolol. -Cough x 1 week - cxr was neg for pna on admission. now cough worsened associated with mild dyspnea. Will repeat cxr, start levaquin, give duonebs and tessalon perles. Hypertensive urgency - resolved, now normotensive. + hx HTN but stopped taking medications. - now controlled - cont metoprolol and cozaar - continue to monitor blood pressure trends and adjust treatment as indicated Dyspnea - due to bronchitis -Stable on RA - repeat cxr today to r/o pneumonia GERD - Mylanta 30 ccs p.o. ordered during my visit - Pepcid 20 mg BID p.o. Mild renal insufficiency -stable, s/p IVF Bi-Polar Disorder - continue home Seroquel and Lamictal - Xanax 0.25 mg q6h PRN anxiety Hypothyroidism - resume home medications DVT prophylaxis - on heparin drip for now Discharge Planning Possible DC this afternoon Anila Chinchilla MD Aug 26, 2017 08:59
[2017-08-26] MEDS: SODIUM CHLORIDE 0.9% FLUSH 10 ML FLUSH IV FLUSH SCH ×2 (09:00→21:29)
[2017-08-26] MEDS ORDERED: RESP: ALBUTEROL 2.5 MG/IPRATROPIUM 0.5 MG NEB (SCH) NEB ONE (09:00)
[2017-08-26] MEDS: DOCUSATE SODIUM 50 MG/SENNA 8.6 MG TAB PO SCH ×2 (09:00→21:29)
[2017-08-26] MEDS ORDERED: METOPROLOL TARTRATE 5 MG/5 ML VIAL IV PUSH ONE (09:15)
[2017-08-26] MEDS: ASPIRIN 81 MG CHEW TAB PO SCH (09:22)
[2017-08-26] MEDS: lamoTRIgine 25 MG TAB PO SCH ×2 (09:22→21:28)
[2017-08-26] MEDS: FAMOTIDINE 20 MG TAB PO SCH ×2 (09:23→21:28)
[2017-08-26] MEDS: PRASUGREL 10 MG TAB PO SCH (09:23)
[2017-08-26] MEDS: LOSARTAN 25 MG TAB PO SCH (09:23)
[2017-08-26] MEDS: METOPROLOL SUCCINATE 50 MG EXTENDED RELEASE TAB PO SCH (09:23)
[2017-08-26] MEDS: ATORVASTATIN 40 MG TAB PO SCH (09:23)
[2017-08-26] MEDS: FLUTICASONE PROPIONATE 50 MCG/ACT 16 GM NASAL SPRAY NASAL SCH ×2 (09:24→21:00)
[2017-08-26] MEDS: BENZONATATE 100 MG CAP PO SCH ×3 (09:29→18:14)
[2017-08-26] MEDS: LEVOFLOXACIN 750 MG TAB PO SCH (09:29)
--- NOTE | 2017-08-26 11:13 | RADRPT ---
EXAM DATE/TIME: 08/26/2017 10:44 [place] COMPARISON: CHEST SINGLE AP, August 22, 2017, 18:09. INDICATIONS : Cough. MEDICAL HISTORY : None. SURGICAL HISTORY : None. ENCOUNTER: Subsequent ACUITY: 2 weeks PAIN SCORE: 0/10 LOCATION: Bilateral chest FINDINGS: A single view of the chest demonstrates the lungs to be symmetrically aerated without evidence of mas s, infiltrate or effusion. The cardiomediastinal contours are unremarkable. Osseous structures are intact with a levoscoliosis of the dorsal spine. CONCLUSION: No acute cardiopulmonary process to explain current clinical symptoms. Luis Vaca MD on August 26, 2017 at 11:10 Board Certified Radiologist. This report was verified electronically.
[2017-08-26] MEDS: RESP: ALBUTEROL 2.5 MG/IPRATROPIUM 0.5 MG NEB (SCH) NEB ×3 (12:23→20:59)
[2017-08-26] MEDS ORDERED: methylPREDNISolone SOD SUCC 40 MG/1 ML VIAL IV PUSH ONE (14:00)
[2017-08-26] MEDS: MORPHINE SULFATE 4 MG/ML INJ IV PUSH PRN (21:29)
[2017-08-26] MEDS: QUEtiapine FUMARATE 25 MG TAB PO SCH (21:35)
[2017-08-27] VITALS (19 sets, daily range): BP systolic 136–149; BP diastolic 79–85; PULSE 63–93; RESP 18; TEMP 97.9–98; O2SAT 92–94
[2017-08-27] MEDS: ACETAMINOPHEN/HYDROcodone 325 MG/5 MG TAB PO PRN ×4 (00:26→14:13)
[2017-08-27] MEDS: ALPRAZolam 0.25 MG TAB PO PRN ×3 (00:26→11:04)
[2017-08-27] MEDS: guaiFENesin/DEXTROMETHORPHAN 200 MG/20 MG/10 ML CUP PO PRN ×2 (04:04→11:09)
[2017-08-27] MEDS: LEVOTHYROXINE SODIUM 50 MCG TAB PO SCH (04:04)
[2017-08-27] MEDS: MORPHINE SULFATE 4 MG/ML INJ IV PUSH PRN ×2 (04:05→11:04)
--- NOTE | 2017-08-27 06:59 | ECHRPT ---
Indication: CONCLUSIONS The left ventricular systolic function is hyperdynamic with an estimated ejection fraction in the ra nge of 60%. Normal left ventricular size. Mild concentric left ventricular hypertrophy. No regional wall motion abnormalities are present. Mild mitral annular calcification. Trace mitral valve regurgitation. There is mild tricuspid valve regurgitation. The estimated pulmonary arterial pressure is 37 mmHg. BP: / HR: Rhythm: Sinus MEASUREMENTS (Male / Female) Normal Values Technical Quality:Good 2D ECHO LV Diastolic Diameter PLAX 2.8 cm 4.2 - 5.9 / 3.9 - 5.3 cm LV Systolic Diameter PLAX 2.0 cm IVS Diastolic Thickness 1.5 cm 0.6 - 1.0 / 0.6 - 0.9 cm LVPW Diastolic Thickness 1.5 cm 0.6 - 1.0 / 0.6 - 0.9 cm LV Relative Wall Thickness 1.0 LVOT Diameter 1.7 cm LV Ejection Fraction MOD 4C 51.8 % LV Ejection Fraction 4C AL 53.5 % M-MODE Aortic Root Diameter MM 2.7 cm AV Cusp Separation MM 1.6 cm DOPPLER AV Peak Velocity 140.0 cm/s AV Peak Gradient 7.8 mmHg LVOT Peak Velocity 95.8 cm/s LVOT Peak Gradient 3.7 mmHg AV Area Cont Eq pk 1.6 cm MV Area PHT 3.1 cm Mitral E Point Velocity 124.0 cm/s Mitral A Point Velocity 121.0 cm/s Mitral E to A Ratio 1.0 TR Peak Velocity 271.0 cm/s TR Peak Gradient 29.4 mmHg Right Atrial Pressure 10.0 mmHg Pulmonary Artery Systolic Pressu 39.4 mmHg Right Ventricular Systolic Press 39.4 mmHg PV Peak Velocity 84.2 cm/s PV Peak Gradient 2.8 mmHg FINDINGS LEFT VENTRICLE The left ventricular systolic function is hyperdynamic with an estimated ejection fraction in the ra nge of 65- 70%. Normal left ventricular size. Mild concentric left ventricular hypertrophy. No regional wall motion abnormalities are present. RIGHT VENTRICLE Normal right ventricular size and systolic function. LEFT ATRIUM The left atrial size is normal. RIGHT ATRIUM The right atrial size is normal. ATRIAL SEPTUM Normal atrial septal thickness without atrial level shunting by limited color doppler interrogation. AORTA The aortic root and proximal ascending aorta are normal in size on limited imaging. MITRAL VALVE Structurally normal mitral valve. Mild mitral annular calcification. Trace mitral valve regurgitation. AORTIC VALVE Mildly sclerotic. Trileaflet aortic valve. No aortic valve stenosis or regurgitation. TRICUSPID VALVE Structurally normal tricuspid valve. There is mild tricuspid valve regurgitation. The estimated pulmonary arterial pressure is 37 mmHg. PULMONARY VALVE The pulmonary valve is not well visualized. VESSELS The inferior vena cava is normal in size. PERICARDIUM No pericardial effusion. Humberto Gonzalez MD (Electronically Signed) Final Date:27 August 2017 06:59
[2017-08-27] MEDS: RESP: ALBUTEROL 2.5 MG/IPRATROPIUM 0.5 MG NEB (SCH) NEB ×2 (07:31→12:10)
[2017-08-27] MEDS: DOCUSATE SODIUM 50 MG/SENNA 8.6 MG TAB PO SCH (09:00)
[2017-08-27] MEDS: ATORVASTATIN 40 MG TAB PO SCH (09:07)
[2017-08-27] MEDS: LEVOFLOXACIN 750 MG TAB PO SCH (09:07)
[2017-08-27] MEDS: BENZONATATE 100 MG CAP PO SCH ×2 (09:07→14:13)
[2017-08-27] MEDS: PRASUGREL 10 MG TAB PO SCH (09:07)
[2017-08-27] MEDS: METOPROLOL SUCCINATE 50 MG EXTENDED RELEASE TAB PO SCH (09:07)
[2017-08-27] MEDS: ASPIRIN 81 MG CHEW TAB PO SCH (09:07)
[2017-08-27] MEDS: LOSARTAN 25 MG TAB PO SCH (09:07)
[2017-08-27] MEDS: FAMOTIDINE 20 MG TAB PO SCH (09:08)
[2017-08-27] MEDS: lamoTRIgine 25 MG TAB PO SCH (09:09)
[2017-08-27] MEDS: FLUTICASONE PROPIONATE 50 MCG/ACT 16 GM NASAL SPRAY NASAL SCH (09:10)
[2017-08-27] MEDS: SODIUM CHLORIDE 0.9% FLUSH 10 ML FLUSH IV FLUSH SCH (09:11)
[2017-08-27] MEDS ORDERED: ASPI81 PO (10:13)
[2017-08-27] MEDS ORDERED: PRAS10TA PO (10:13)
[2017-08-27] MEDS ORDERED: COZA25TA PO (10:13)
[2017-08-27] MEDS ORDERED: ATOR40TA16 PO (10:13)
[2017-08-27] MEDS ORDERED: BENZ100 PO (10:13)
[2017-08-27] MEDS ORDERED: METO1TAB9 PO (10:13)
[2017-08-27] MEDS ORDERED: LEVA750T9 PO (10:13)
--- NOTE | 2017-08-27 10:43 | HHI.DS ---
Discharge Summary Admission Date Aug 22, 2017 at 19:11 Discharge Date: Aug 27, 2017 Admitting Diagnosis NSTEMI (1) NSTEMI (non-ST elevated myocardial infarction) ICD Code: I21.4 - Non-ST elevation (NSTEMI) myocardial infarction Status: Acute (2) Hypertensive urgency ICD Code: I16.0 - Hypertensive urgency (3) GERD (gastroesophageal reflux disease) ICD Code: K21.9 - Gastro-esophageal reflux disease without esophagitis Status: Acute (4) Bipolar disorder ICD Code: F31.9 - Bipolar disorder, unspecified Status: Chronic (5) Hypothyroidism ICD Code: E03.9 - Hypothyroidism, unspecified Status: Chronic Procedures Left heart catheterization Brief History - From Admission Ms. Freitas is a very anxious 67 year-old female with a history of bipolar disorder, GERD, hypertension, hyperlipidemia, and hypothyroidism who presented to the emergency department on 08/22/2017 in [place] for evaluation of congestion, cough, shortness of breath, and chest pain. Evaluation showed elevated troponin I of 0.19. The patient is seen in her room and the [facility]. She is manic in her behavior. She speaks very rapidly and it is difficult to keep her on subject. She reports that her symptoms began about 2 weeks ago with a mild cough. Accompanying the cough has been some shortness of breath that is worse with exertion and substernal chest pain that she associates with gastroesophageal reflux disease. She reports that it's worse when she bends forward and is accompanied by gastric contents refluxing into her esophagus quite painfully. However, she has also had nausea with these symptoms and right neck and shoulder pain. Her symptoms are worsened with eating. Her symptoms became exacerbated again during my visit and, according to her, this was because she had just finished dinner and felt like indigestion - heparin and nitroglycerin drips were infusing at the time. Her symptoms are accompanied by palpitations, shortness of breath but not associated with diaphoresis. She reports recent tactile fever and chills, shortness of breath, wheezing, chest pressure, neck and shoulder pain, heartburn , indigestion, weight gain of 20 pounds in the past year which she attributes to Seroquel started by her psychiatrist, Dr. Miguel Angel Ortiz. Her CBC is normal and her chest x-ray showed no acute disease. The only lab result that was significantly abnormal was the troponin one elevation of 0.19. She is clearly anxious and suffering from anxiety in her daily life. She has significant psychiatric impairment and her Lamictal dose was increased two weeks ago. CBC/BMP: 08/23/17 0220 08/26/17 0436 Significant Findings Laboratory Tests Test 08/25/17 06:18 08/26/17 04:36 Blood Urea Nitrogen 22 MG/DL (7-18) Calcium Level 8.3 MG/DL (8.5-10.1) 8.2 MG/DL (8.5-10.1) Estimat Glomerular Filtration Rate 58 ML/MIN (>89) 53 ML/MIN (>89) Creatinine 1.03 MG/DL (0.50-1.00) PE at Discharge GENERAL: Well-nourished, well-developed pleasant female patient. SKIN: Warm and dry. HEAD: Normocephalic. EYES: No scleral icterus. No injection or drainage. NECK: Supple, trachea midline. No JVD or lymphadenopathy. CARDIOVASCULAR: Regular rate and rhythm without murmurs, gallops, or rubs. RESPIRATORY: Breath sounds equal bilaterally. Clear to auscultation without wheezing. No accessory muscle use. GASTROINTESTINAL: Abdomen soft, non-tender, nondistended. EXTREMITIES: No cyanosis, or edema. NEUROLOGICAL: Awake, alert, and oriented x 3. Non-focal. Psychiatric: Nonpressured speech, no hallucinations or hallucinations. Good eye contact. Hospital Course NSTEMI, chest pain, cough x 1 week/ viral URI - risk factors include tobacco use , HTN, sedentary lifestyle - troponin 0.19 - 0.24 - s/p Heparin drip and Nitroglycerin patch - Cardiology consulted - followed by Dr. Bass -status post [facility] 08/25 showing stenosis at the ostium of the RCA status post atherectomy and stent - cont cozaar, Aspirin, Effient statin (LDL 112), metoprolol. -Cough x 1 week - cxr was neg for pna on admission. now cough worsened associated with mild dyspnea. Will repeat cxr, start levaquin, give duonebs and tessalon perles. Hypertensive urgency - resolved, now normotensive. + hx HTN but stopped taking medications. - now controlled - cont metoprolol and cozaar - continue to monitor blood pressure trends and adjust treatment as indicated Dyspnea - due to bronchitis -Stable on RA - repeat cxr on 08/26 remain negative for pneumonia -Treat with Levaquin, Tessalon Perles GERD - Mylanta 30 ccs p.o. ordered during my visit - Pepcid 20 mg BID p.o. Mild renal insufficiency -stable, s/p IVF Bi-Polar Disorder - continue home Seroquel and Lamictal - Xanax 0.25 mg q6h PRN anxiety Hypothyroidism - resume home medications Pt Condition on Discharge: Stable Discharge Disposition: Discharge Home Discharge Time: > 30 minutes Discharge Instructions DIET: Follow Instructions for: Heart Healthy Diet Activities you can perform: Regular-No Restrictions Follow up Referrals: Cardiology - 1 Week with Humberto Gonzalez MD PCP Follow-up - 1 Week New Medications: Aspirin (Tgt Aspirin) 81 Mg Chw 81 MG PO DAILY for blood thinner, #30 EA Atorvastatin (Atorvastatin) 40 Mg Tab 40 MG PO DAILY for Cholesterol Management, #30 TAB Benzonatate (Tessalon Perles) 100 Mg Cap 200 MG PO TID for cough, #30 CAP Levofloxacin (Levaquin) 750 Mg Tablet 750 MG PO DAILY for Infection, #5 TAB Losartan (Cozaar) 25 Mg Tab 25 MG PO DAILY for Blood Pressure Management, #30 TAB Metoprolol Succinate ER 24 HR (Metoprolol Succinate ER 24 HR) 50 Mg Tab 100 MG PO DAILY for Blood Pressure Management, #30 TAB Prasugrel (Effient) 10 Mg Tab 10 MG PO DAILY for blood thinner, #30 TAB Continued Medications: Esterified Estrogens-Methyltestosterone (Esterified Estrogens-Methyltestosterone ) 1.25-2.5 Mg Tab 2.5 MG PO DAILY Lamotrigine (Lamotrigine) 100 Mg Tab 50 MG PO BID for Control Seizures, #30 TAB 0 Refills Levothyroxine (Levothyroxine) 50 Mcg Tab 50 MCG PO DAILY for Thyroid, #30 TAB 0 Refills Quetiapine (Quetiapine) 50 Mg Tab 50 MG PO HS, #30 TAB 0 Refills Anila Chinchilla MD Aug 27, 2017 10:43
[2017-08-27] MEDS: SODIUM CHLORIDE 0.9% FLUSH 10 ML FLUSH IV FLUSH PRN (11:06)
[2017-08-27] MEDS ORDERED: PNEUMOCOCCAL POLYVALENT INJ 25 MCG/0.5 ML SYR IM ONE (14:15)
[2017-08-27] MEDS ORDERED: INFLUENZA VIRUS VACCINE (QUADRIVALENT) 0.5 ML SYR IM ONE (14:15)
== END 2017-08-27 16:04 | disposition home or self-care (01) | DRG 247 ==
LOC: PHED 17:24 → PHEDA 19:11 → HCIS 21:14
PROVIDERS: ADMIT Family Medicine; ATTEND Family Medicine
PROC: 02C03ZZ Extirpation of Matter from Coronary Artery, One Artery, Percutaneous Approach (ICD-10-PCS; 2017-08-25)
PROC: 4A023N7 Measurement of Cardiac Sampling and Pressure, Left Heart, Percutaneous Approach (ICD-10-PCS; 2017-08-25)
PROC: B2111ZZ Fluoroscopy of Multiple Coronary Arteries using Low Osmolar Contrast (ICD-10-PCS; 2017-08-25)
PROC: 027034Z Dilation of Coronary Artery, One Artery with Drug-eluting Intraluminal Device, Percutaneous Approach (ICD-10-PCS; principal; 2017-08-25 07:15)
DX: I21.4 Non-ST elevation (NSTEMI) myocardial infarction (principal); N17.9 Acute kidney failure, unspecified; I12.9 Hypertensive chronic kidney disease with stage 1 through stage 4 chronic kidney disease, or unspecified chronic kidney disease; N18.9 Chronic kidney disease, unspecified; Z90.5 Acquired absence of kidney; I16.0 Hypertensive urgency; F31.9 Bipolar disorder, unspecified; K21.9 Gastro-esophageal reflux disease without esophagitis; E78.5 Hyperlipidemia, unspecified; E03.9 Hypothyroidism, unspecified; J40 Bronchitis, not specified as acute or chronic; I25.10 Atherosclerotic heart disease of native coronary artery without angina pectoris; Z82.49 Family history of ischemic heart disease and other diseases of the circulatory system; Z91.19 Patient's noncompliance with other medical treatment and regimen; Z87.891 Personal history of nicotine dependence; Z23 Encounter for immunization
CPT/HCPCS: 33210; 71010; 76937; 80048; 80053; 80061; 82550; 83690; 84443; 84484; 85002; 85025; 85610; 85730; 90686; 90732; 92924; 93005; 93306; 93458; 94060; 94620; 94640; 94664; 96365; 96366; 96375; C1714; C1769; C1874; C1887; C1893; J1644; J2250; J2270; J2405; J2920; J3010; J7030; Q0163; Q2038; Q9967

== ENCOUNTER 2018-01-15 12:20 | Emergency (ER) | payer BC ==
[~2018-01-15] VITALS: Ht 157.5 cm; Wt 65.0 kg
[~2018-01-15 12:20] MED LIST changes: +ASPI81 PO; +ATOR40TA16 PO; +BENZ100 PO; +COZA25TA PO; -HYDR-3533 PO; +LAMO100T PO; +LEVA750T9 PO; +METO1TAB9 PO; +PRAS10TA PO; +QUET5TAB PO
[2018-01-15 12:24] VITALS: BP 155/89; PULSE 90; RESP 16; TEMP 97.8; O2SAT 96
[2018-01-15] MEDS ORDERED: OXYMETAZOLINE HCL 0.05% 15 ML NASAL SPRAY NASAL ONE (12:30)
--- NOTE | 2018-01-15 12:31 | PD ---
HPI Chief Complaint: Nosebleed Time Seen by Provider: 12:26 Travel History International Travel<30 days: No Contact w/Intl Traveler<30days: No Traveled to known affect area: No History of Present Illness HPI 67-year-old female presents to the emergency department via EMS for evaluation of nosebleed. Patient states that started last night in the bilateral nares. Patient is on anticoagulant, Effient. She denies any history of nosebleeds. She denies any trauma. She states that when she blew her nose, the bleeding worsened. Patient states she did have diarrhea, but believes it was from the nasal drainage. Patient denies any other symptoms or complaints at this time. Moderate severity. PFSH Past Medical History Hx Anticoagulant Therapy: Yes Autoimmune Disease: No Blood Disorders: No Anxiety: Yes Depression: Yes Cancer: No Cardiovascular Problems: Yes Chemotherapy: No Diabetes: No Diminished Hearing: No Endocrine: No Gastrointestinal Disorders: No GERD: Yes Glaucoma: No Genitourinary: No Hepatitis: No Hiatal Hernia: No Heparin Induced Thrombocytopen: No Hypertension: Yes Immune Disorder: No Implanted Vascular Access Dvce: No Kidney Stones: No Musculoskeletal: No Neurologic: No Psychiatric: Yes Reproductive: No Respiratory: No Immunizations Current: Yes Radiation Therapy: No Renal Failure: No Sickle Cell Disease: No Thyroid Disease: Yes Ulcer: No ?: Not Past Surgical History Abdominal Surgery: Yes (APPY) AICD: No Appendectomy: Yes Arteriovenous Shunt: No Cardiac Surgery: No Cholecystectomy: No Ear Surgery: No Endocrine Surgery: No Eye Surgery: No Genitourinary Surgery: No Gynecologic Surgery: Yes (HYSTERECTOMY, RIGHT OOPHORECTOMY) Hysterectomy: Yes (WITH OOPHERECTOMY) Insulin Pump: No Joint Replacement: No Neurologic Surgery: No Oral Surgery: Yes (T & A) Pacemaker: No Thoracic Surgery: No Tonsillectomy: Yes Other Surgery: No Social History Alcohol Use: No Tobacco Use: No Substance Use: Yes (marijuana, last time 5 yrs ago ) Allergies-Medications (Allergen,Severity, Reaction): Coded Allergies: penicillin G (Unverified Allergy, Mild, RASH, 01/15/18) nitrofurantoin (Unverified Allergy, Unknown, RASH, 01/15/18) Reported Meds & Prescriptions Reported Meds & Active Scripts Active Tgt Aspirin (Aspirin) 81 Mg Chw 81 Mg PO DAILY Cozaar (Losartan Potassium) 25 Mg Tab 25 Mg PO DAILY Metoprolol Succinate ER 24 HR (Metoprolol Succinate) 50 Mg Tab 100 Mg PO DAILY Atorvastatin (Atorvastatin Calcium) 40 Mg Tab 40 Mg PO DAILY Effient (Prasugrel) 10 Mg Tab 10 Mg PO DAILY Reported Lamotrigine 100 Mg Tab 50 Mg PO BID Quetiapine (Quetiapine Fumarate) 50 Mg Tab 50 Mg PO HS Levothyroxine (Levothyroxine Sodium) 50 Mcg Tab 50 Mcg PO DAILY Esterified Estrogens-Methyltestosterone 1.25-2.5 Mg Tab 2.5 Mg PO DAILY Review of Systems Except as stated in HPI: all other systems reviewed are Neg Physical Exam Narrative GENERAL: Well-nourished, well-developed female patient, afebrile. SKIN: Focused skin assessment warm/dry. HEAD: Normocephalic. Atraumatic. ENT: Mucosa pink and moist. No erythema or exudates. No uvular edema. No uvular , palatal, or tonsillar deviation. Airway patent. Mild blood noted in bilateral nares. Bilateral tympanic membranes clear without erythema or perforation. EYES: No scleral icterus. No injection or drainage. NECK: Supple, trachea midline. No JVD or lymphadenopathy. CARDIOVASCULAR: Regular rate and rhythm without murmurs, gallops, or rubs. RESPIRATORY: Breath sounds equal bilaterally. No accessory muscle use. Lung sounds are clear to auscultation. GASTROINTESTINAL: Abdomen soft, non-tender, nondistended. MUSCULOSKELETAL: No cyanosis, or edema. BACK: Nontender without obvious deformity. No CVA tenderness. Data Data Last Documented VS Vital Signs Date Time Temp Pulse Resp B/P (MAP) Pulse Ox O2 Delivery O2 Flow Rate FiO2 01/15/18 12:24 97.8 90 16 155/89 (111) 96 Orders Orders Complete Blood Count With Diff (01/15/18 12:26) Basic Metabolic Panel (Bmp) (01/15/18 12:26) Act Partial Throm Time (Ptt) (01/15/18 12:26) Prothrombin Time / Inr (Pt) (01/15/18 12:26) Oxymetazoline 0.05% Ibrahima [place] (Afrin 0.0 (01/15/18 12:30) Acetamin-Hydrocod 325-5 Mg ([place] 5-325 (01/15/18 14:00) Lidocai-Epi 1%-1:100,000 Inj (Xylocaine- (01/15/18 14:00) Labs Laboratory Tests Test 01/15/18 12:45 White Blood Count 13.4 TH/MM3 Red Blood Count 4.77 MIL/MM3 Hemoglobin 13.8 GM/DL Hematocrit 40.8 % Mean Corpuscular Volume 85.7 FL Mean Corpuscular Hemoglobin 28.9 PG Mean Corpuscular Hemoglobin Concent 33.8 % Red Cell Distribution Width 13.4 % Platelet Count 372 TH/MM3 Mean Platelet Volume 8.3 FL Neutrophils (%) (Auto) 75.7 % Lymphocytes (%) (Auto) 18.1 % Monocytes (%) (Auto) 4.4 % Eosinophils (%) (Auto) 0.6 % Basophils (%) (Auto) 1.2 % Neutrophils # (Auto) 10.1 TH/MM3 Lymphocytes # (Auto) 2.4 TH/MM3 Monocytes # (Auto) 0.6 TH/MM3 Eosinophils # (Auto) 0.1 TH/MM3 Basophils # (Auto) 0.2 TH/MM3 CBC Comment DIFF FINAL Differential Comment Prothrombin Time 10.5 SEC Prothromb Time International Ratio 1.0 RATIO Activated Partial Thromboplast Time 23.6 SEC Blood Urea Nitrogen 53 MG/DL Creatinine 1.10 MG/DL Random Glucose 93 MG/DL Calcium Level 9.1 MG/DL Sodium Level 136 MEQ/L Potassium Level 4.8 MEQ/L Chloride Level 105 MEQ/L Carbon Dioxide Level 24.3 MEQ/L Anion Gap 7 MEQ/L Estimat Glomerular Filtration Rate 49 ML/MIN MDM Medical Decision Making Medical Screen Exam Complete: Yes Emergency Medical Condition: Yes Medical Record Reviewed: Yes Differential Diagnosis Epistaxis versus anemia vs. medical clearance Narrative Course 67-year-old female presents to the emergency department for evaluation of epistaxis from bilateral nares via EMS. She appears well on exam. CBC, BMP, PTT, PT/INR ordered and pending. Afrin will be given and patient is instructed to hold pressure. CBC shows slight leukocytosis of 13.4. BMP shows BUN 53, creatinine of 1.10. Coags show no acute abnormalities. Patient continues to blow her nose although she is educated not to. Patient is watched for 30 mins and bleeding continues. Left nare is packed with Rhino Rocket 7.5 anterior/posterior packing without difficulty. Patient is watched after packing is placed. Packing was sliding out of nostril and bleeding was not controlled. Packing was replaced to left nare. Patient, however, would not allow packing to be placed in right nare to ensure bleeding is stopped. Patient is instructed to return in 3 days for removal or follow up with ENT Diagnosis Primary Impression: Epistaxis Referrals: Ear / Nose / Throat Specialist call for appointment Patient Instructions: Epistaxis (DC), General Instructions Additional Instructions: Follow up with ENT or return here for nasal packing removal in 3 days. Do not blow or pick at nose. Apply ice. Return to the emergency department for any acute, worsening of symptoms. Med/Other Pt SpecificInfo: No Change to Meds Disposition: 01 DISCHARGE HOME Condition: Stable Anna Blanc Jan 15, 2018 12:31
[2018-01-15 12:52] LABS: AUTOMATED NEUTROPHIL # 10.1 TH/MM3 (1.8-7.7); BASOPHIL # 0.2 TH/MM3 (0-0.2); BASOPHIL % 1.2 % (0.0-2.0); EOSINOPHIL # 0.1 TH/MM3 (0-0.4); EOSINOPHIL % 0.6 % (0.0-4.0); HEMATOCRIT 40.8 % (35.0-46.0); HEMOGLOBIN 13.8 GM/DL (11.6-15.3); LYMPH % 18.1 % (9.0-44.0); LYMPHOCYTE # 2.4 TH/MM3 (1.0-4.8); MEAN CELL VOLUME 85.7 FL (80.0-100.0); MEAN CORPUSCULAR HEMOGLOBIN 28.9 PG (27.0-34.0); MEAN CORPUSCULAR HGB CONC 33.8 % (32.0-36.0); MEAN PLATELET VOLUME 8.3 FL (7.0-11.0); MONO % 4.4 % (0.0-8.0); MONOCYTE # 0.6 TH/MM3 (0-0.9); NEUT % 75.7 % (16.0-70.0); PLATELET COUNT 372 TH/MM3 (150-450); RED BLOOD COUNT 4.77 MIL/MM3 (4.00-5.30); RED CELL DISTRIBUTION WIDTH 13.4 % (11.6-17.2); WHITE BLOOD COUNT 13.4 TH/MM3 (4.0-11.0)
[2018-01-15 12:59] LABS: BICARBONATE 24.3 MEQ/L (21.0-32.0); CALCIUM 9.1 MG/DL (8.5-10.1)
[2018-01-15 13:03] LABS: CREATININE 1.1 MG/DL (0.50-1.00)
[2018-01-15 13:04] LABS: PROTHROMBIN TIME - PATIENT 10.5 SEC (9.8-11.6)
[2018-01-15] MEDS ORDERED: ACETAMINOPHEN/HYDROcodone 325 MG/5 MG TAB PO ONE (14:00)
[2018-01-15] MEDS ORDERED: LIDOCAINE 1%/EPINEPHrine 1:100,000 SOLN 20 ML VIAL INFIL ONE (14:00)
[2018-01-15 14:47] VITALS: BP 172/90
== END 2018-01-15 14:52 | disposition home or self-care (01) ==
LOC: PHEFT 12:20
DX: R04.0 Epistaxis (principal); F41.9 Anxiety disorder, unspecified; F32.9 Major depressive disorder, single episode, unspecified; I10 Essential (primary) hypertension; K21.9 Gastro-esophageal reflux disease without esophagitis; E07.9 Disorder of thyroid, unspecified
CPT/HCPCS: 30901; 80048; 85025; 85610; 85730